=== PATIENT | female | born 1935 | race Caucasian/White ===

== ENCOUNTER 2017-02-03 09:15 | Emergency (ER) | payer MEDICARE, OTHER ==
--- NOTE | ~2017-02-03 | EKG ---
PATIENT: JAREN ANGEL UNIT #: [id number] Ventricular Rate: 68 BPM Atrial Rate: 68 BPM P-R Interval: 212 ms QRS Duration: 84 ms Q-T Interval: 428 ms QTC Calculation(Bezet): 455 ms P Lilly: 58 degrees Calculated R Lilly: 14 degrees Calculated T Lilly: 30 degrees Diagnosis Line: Atrial-paced rhythm with prolonged AV conduction Diagnosis Line: in a pattern of bigeminy Diagnosis Line: Abnormal ECG Diagnosis Line: When compared with ECG of 29-APR-2016 09:40, Diagnosis Line: Electronic atrial pacemaker has replaced Atrial Diagnosis Line: fibrillation Diagnosis Line: Nonspecific T wave abnormality no longer evident Diagnosis Line: in Anterior leads Diagnosis Line: Confirmed by NAVNEET ROUSSEAU MD ([id number]) on Diagnosis Line: 02/03/2017 3:27:30 PM INTERPRETING MD: SOHAM JEFFERS
--- NOTE | ~2017-02-03 | CT16 ---
[facility] A Service of [facility] & [facility] RADIOLOGY TEXT RESULTS PATIENT: JAREN ANGEL LOCATION: [facility] : 33 UNIT #: [id number] AGE: [address]: Vanessa Musa MD SEX: F ORDER DR: [id number] [facility] [address] [place], [place] [address] [id number] E MR#: [id number] Acc #: [id number] NAME: JAREN ANGEL : 1935 SEX: F STUDY DATE/TIME: 02/03/2017 10:43 UNIT: [facility] ROOM: STUDY DESCRIPTION: CT Angio Chest for PE Attending Physician: Vanessa Musa M.D. Ordering Physician: Andria Valdovinos M.D. Primary Care Physician: Kumar Pugh Jr., M.D. MEDICAL IMAGING REPORT This report is preliminary unless electronic signature is present EXAM CT angiogram of the chest for pulmonary embolism 02/03/2017 1043 hours CLINICAL HISTORY 81-year-old woman complaining of thoracic posterior pain, posterior back pain with shortness of air for 2 days worsening this morning. History of previous thoracic compression fracture. Evaluate for pulmonary embolism. TECHNIQUE Dynamic helical CT angiographic images were obtained from the thoracic inlet through the adrenal glands. 3D sagittal and coronal reconstructions were performed. Contrast was Isovue-370 70 mL. Total exam DLP 5779 mGy-cm. This CT exam was performed with one or more of the following radiation dose reduction techniques: automatic exposure control, adjustment of mA and/or kV according to patient size, and iterative reconstruction. FINDINGS Images through the thoracic inlet demonstrate no thyroid mass or supraclavicular adenopathy. Images through the chest demonstrate diagnostic quality opacification of the pulmonary arteries which are mildly prominent in size. There are no filling defects to suggest the presence of pulmonary emboli. There is diffuse atherosclerotic change of the thoracic aorta which is well-opacified. Ascending aorta is within normal limits at 3.3 cm. There is prominence of the right ventricle without pericardial fluid. The esophagus is normal. Lung window images demonstrate band-like scarring at the right greater than left apex. There is some peripheral linear density in the lingula and both lower lobes. The lingula and lower lobe linear changes are stable. There is a nodular density abutting the posterior dome of the STS. [facility] A Service of [facility] & [facility] RADIOLOGY TEXT RESULTS PATIENT: JAREN ANGEL LOCATION: [facility] : 33 UNIT #: [id number] AGE: [address]: Vanessa Musa MD SEX: F ORDER DR: right hemidiaphragm measuring up to 1.9 cm new from 09/22/2014. The sagittal and coronal images raise question of a focal herniation or eventration of the hemidiaphragm with the nodule appearing fairly isodense to liver with subtle suggestion of a similar but smaller density on the sagittal and coronal reconstructed images of 09/22/2014. There is no definite pneumonia or edema. Limited views through the upper abdomen demonstrate a distended gallbladder without definite stones. The adrenal glands are normal. IMPRESSION 1. No evidence of pulmonary embolism. 2. There is linear scarring at the right greater than left lung apex and dependent linear density at the lung bases similar to CT abdomen 09/22/2014 likely chronic atelectasis or scar. 3. There is a new or increasing soft tissue nodular density abutting the posterior dome of the right hemidiaphragm measuring up to 1.9 cm. The sagittal and coronal reconstructed images suggest that this could represent a focal eventration of the hemidiaphragm with nodule representing liver or focal herniation. This may be vaguely apparent on the sagittal and coronal reconstructed images from CT abdomen 09/22/2014 but it is clearly increased. Consider further evaluation with multiphase CT abdomen to determine whether this is isodense and enhances similar to the liver. If this does not represent liver then a PET/CT would be warranted to exclude a new right pleural-based nodule. STAT * RESULT Dictated by... Debbie Avery M.D. THIS IS AN ELECTRONICALLY VERIFIED REPORT Debbie Avery M.D. at 02/03/2017 1:34 PM CORTNEY/marin TD: 02/03/2017 11:32 JOB #: [id number] MEDICAL IMAGING REPORT COPY
--- NOTE | ~2017-02-03 | CR72 ---
[facility] A Service of [facility] & [facility] RADIOLOGY TEXT RESULTS PATIENT: JAREN ANGEL LOCATION: [facility] : 33 UNIT #: [id number] AGE: [address]: Vanessa Musa MD SEX: F ORDER DR: [id number] [facility] [address] [place], [place] [address] [id number] E MR#: [id number] Acc #: [id number] NAME: JAREN ANGEL. : 1935 SEX: F STUDY DATE/TIME: 02/03/2017 8:27 UNIT: [facility] ROOM: STUDY DESCRIPTION: CR Chest Single View Portable Attending Physician: Andria Valdovinos M.D. Ordering Physician: Andria Valdovinos M.D. Primary Care Physician: Kumar Pugh Jr., M.D. MEDICAL IMAGING REPORT This report is preliminary unless electronic signature is present EXAM Portable chest, 02/02/2017. COMPARISON STUDIES Prior chest radiograph, 03/08/2014. CLINICAL HISTORY Short of air for 2-3 weeks. FINDINGS There is mild pulmonary hyperexpansion and borderline cardiomegaly. There is a pacemaker present but no infiltrate, effusion, pneumothorax, or suspicious nodule. IMPRESSION Chronic changes above. No active disease. Dictated by... Bereket Gutierrez M.D. THIS IS AN ELECTRONICALLY VERIFIED REPORT Bereket Gutierrez M.D. at 02/03/2017 5:02 PM TEV/padmini TD: 02/03/2017 09:54 JOB #: [id number] MEDICAL IMAGING REPORT COPY
[2017-02-03 08:43] LABS: POC - CKMB <1.0 ng/mL (0.0-7.9); POC - TROPONIN <0.05 ng/mL (<=0.05)
[2017-02-03 09:00] LABS: BASOPHIL# 0.1 X10e3 (0-0.3); EOSINOPHIL# 0.1 X10e3 (0-0.7); EOSINOPHIL% 2.6 % (0.0-7.0); HEMATOCRIT 31.1 % (35.0-45.0); HEMOGLOBIN 9.8 gm/dL (12.0-16.0); LYMPHOCYTE% 18.6 % (17.0-45.0); MEAN CELL VOLUME 73.3 FL (83-96); MEAN CORPUSCULAR HEMOGLOBIN 23.2 PG (28-34); MEAN CORPUSCULAR HGB CONC 31.7 g/dL (30-36); MEAN PLATELET VOLUME 7.5 FL (6.5-11.5); MONOCYTE# 0.4 X10e3 (0-1.0); MONOCYTE% 7.8 % (3.0-12.0); NEUTROPHIL# 3.8 X10e3 (1.5-7.1); PLATELET COUNT 278 X10e3 (140-420); RED BLOOD COUNT 4.24 X10e (3.90-5.30); RED CELL DISTRIBUTION WIDTH 18.3 % (11.0-15.5); WHITE BLOOD COUNT 5.4 X10e3 (4.0-10.5)
[2017-02-03 09:02] LABS: DIFF IND NO
[2017-02-03 09:06] LABS: INR 2.6; PARTIAL THROMBOPLASTIN TIME 35.5 SECONDS (23.5-31.3); PROTHROMBIN TIME (PATIENT) 28.3 SECONDS (9.6-11.5)
[2017-02-03 09:11] LABS: ALBUMIN SERUM 3.9 g/dL (3.5-5.0); ALKALINE PHOSPHATASE 87 U/L (32-92); ALT (SGPT) 12 U/L (10-40); AST (SGOT) 20 U/L (10-42); BILIRUBIN, DIRECT 0.1 mg/dL (0.0-0.2); BILIRUBIN,INDIRECT 0.5 mg/dL (0.0-0.9); BILIRUBIN,TOTAL 0.6 mg/dL (0.2-2.0); BLOOD UREA NITROGEN 31 mg/dL (9-23); BUN/CREATININE RATIO 44.28; CALCIUM SERUM 9.2 mg/dL (8.4-10.2); CARBON DIOXIDE 22 mmol/L (22-31); CHLORIDE 108 mmol/L (100-111); CREATININE SERUM 0.7 mg/dL (0.6-1.4); GLOM FILT RATE Estimated ABOVE60 mL/min (>60); GLUCOSE FASTING 139 mg/dL (70-110); POTASSIUM 3.5 mmol/L (3.5-5.1); PROTEIN TOTAL SERUM 6.9 g/dL (6.0-8.3); SODIUM 140 mmol/L (135-145)
[~2017-02-03 09:15] MED LIST: ACETAMINOPHEN PR; AMLODIPINE-BENA1 CA3 PO; AMLODIPINE-BENA1 CAP PO; AMOXICILLIN500 M1 PO; AZOR 5-20 MG T1 EACH PO; BETAPACE PO; BETAPACE80 MG PO; CALCIUM + D 6001 TA1 PO; CALCIUM 500 +1 EAC2 PO; CARAFATE1 GM PO; CARTIA XT240 M1 PO; CELEXA10 M1 PO; CENTRUM SILVER PO; CITALOPRAM HBR10 MG PO; CLARITHROMYCIN500 MG PO; COUMADIN PO; COUMADIN5 MG PO; CRESTOR PO; DOCUSATE SODIU100 MG PO; EXELON1 PATCH .2 TD; EXELON4.6 MG TD; GLUCOSAMINE & C1 CAP PO; HYDROCODON-ACE1 EAC5 PO; HYDROCODON-ACE1 EAC7 PO; HYDROCODONE-APA1 T57 PO; K-DUR10 MEQ PO; KLOR-CON SPRIN10 MEQ PO; LOTREL 10/20 MG1 CAP PO; LOTREL 5-20 MG1 CAP PO; METOPROLOL TAR25 MG PO; MIRALAX17 GM PO; OMEPRAZOLE20 M2 PO; OSCAL PO; POTASSIUM CHLO10 ME1 PO; PREVAGEN PO; PRILOSEC40 MG; PROTONIX PO; ROBAXIN500 MG PO; SOTALOL AF80 M1 PO; SOTALOL AF80 MG PO; STOOL SOFT & ST1 TAB PO; TESSALON200 MG PO; TYLENOL PM PO; ZITHROMAX1 G/PKT PO; ZOCOR PO
[2017-02-03 10:53] LABS: POC - CKMB <1.0 ng/mL (0.0-7.9); POC - TROPONIN <0.05 ng/mL (<=0.05)
== END 2017-02-03 12:33 | disposition home or self-care (01) ==
LOC: CED 09:15
PROVIDERS: Emergency Medicine
DX: M54.6 Pain in thoracic spine (principal); G89.29 Other chronic pain; R06.02 Shortness of breath; E78.5 Hyperlipidemia, unspecified; I48.91 Unspecified atrial fibrillation; I10 Essential (primary) hypertension; F32.9 Major depressive disorder, single episode, unspecified; F03.90 Unspecified dementia, unspecified severity, without behavioral disturbance, psychotic disturbance, mood disturbance, and anxiety; Z95.0 Presence of cardiac pacemaker
CPT/HCPCS: 36415; 71010; 71275; 80048; 80076; 82553; 83880; 84484; 85025; 85379; 85610; 85730; 93005; 99284; Q9967

== ENCOUNTER 2017-02-09 20:48 | Emergency (ER) | payer MEDICARE, OTHER ==
--- NOTE | ~2017-02-09 | EKG ---
PATIENT: JAREN ANGEL UNIT #: [id number] Ventricular Rate: 70 BPM Atrial Rate: 70 BPM P-R Interval: 204 ms QRS Duration: 76 ms Q-T Interval: 420 ms QTC Calculation(Bezet): 453 ms P [place]: 71 degrees Calculated R [place]: 27 degrees Calculated T [place]: 23 degrees Diagnosis Line: Atrial-paced rhythm with frequent supraventricular Diagnosis Line: complexes and Premature atrial complexes in a Diagnosis Line: pattern of bigeminy Diagnosis Line: Abnormal ECG Diagnosis Line: When compared with ECG of 03-FEB-2017 08:01, Diagnosis Line: Premature atrial complexes are now Present Diagnosis Line: Confirmed by NAVNEET ROUSSEAU MD ([id number]) on Diagnosis Line: 02/10/2017 8:02:56 AM INTERPRETING MD: SOHAM JEFFERS
== END 2017-02-09 21:15 | disposition home or self-care (01) ==
LOC: CED 20:48
DX: M54.6 Pain in thoracic spine (principal); G89.29 Other chronic pain; F41.9 Anxiety disorder, unspecified; I10 Essential (primary) hypertension; Z98.890 Other specified postprocedural states
CPT/HCPCS: 93005; 96372; 99283; J2270

== ENCOUNTER 2017-02-15 16:39 | Inpatient (IN) | payer MEDICARE, OTHER ==
--- NOTE | ~2017-02-15 | DS ---
Unit #: [id number] #: [id number] Patient: JAREN ANGEL [id number] [address] [place], [place] [address] [id number] I MR#: [id number] NAME: JAREN ANGEL ROOM: 229 Age: 81 Sex: F Admission Date: 02/15/2017 : 1935 Discharge Date: Attending Physician: Dash Evans M.D. Primary Care Physician: Kumar Pugh Jr., M.D. DISCHARGE SUMMARY ADDENDUM Previously, since the time of dictation, the patient has been started on hemodialysis by Nephrology on Friday, Friday, Friday. The patient was accepted at [facility] in the past and the patient has been accepted at [facility] today also. The patient has been improved much since the last time when the patient was about to be discharged. The patient was waiting for the outpatient hemodialysis placement. However, the only spot available was at 6 a.m. in the morning and that was not acceptable to the family at that time. So, the patient has been discharged to the rehab today in stable condition. DISCHARGE DIAGNOSES 1. Acute renal failure that is on hemodialysis. 2. Escherichia coli urinary tract treated and resolved. 3. Toxic metabolic encephalopathy, improved. 4. Paroxysmal atrial fibrillation and rate controlled on anticoagulation with Eliquis. 5. History of sick sinus syndrome status post pacemaker. 6. Essential hypertension. 7. Dyslipidemia. 8. Advanced dementia. CONSULTANTS Nephrology with Dr. Stack and Dr. Castro. PROCEDURE Dialysis per Nephrology. PHYSICAL EXAMINATION GENERAL APPEARANCE: The patient is lying on bed not in acute distress. VITAL SIGNS: Temperature 97.4. Pulse 60. Respiration 11. Blood pressure 144/65. Sating 96% (1) . HEENT: Head atraumatic, normocephalic. ENT: Pupils equal, round, reacting to light and accommodation. Extraocular movements are intact. NECK: Supple. No JVD. LUNGS: Clear to auscultation bilaterally. No rhonchi. No wheezing. HEART: Irregular rate and rhythm. Positive for murmur. ABDOMEN: Soft. Positive bowel sounds. EXTREMITIES: No cyanosis. No clubbing. NEUROLOGIC: Alert, awake, oriented. No gross focal motor deficit. DIAGNOSTIC STUDIES LABORATORY: Glucose 92, BUN 18, creatinine 2, sodium 143, potassium 3.6, Unit #: [id number] #: [id number] Patient: JAREN ANGEL chloride 103, bicarb 27, calcium 8.4. INR 1.5. WBC 4.1, hemoglobin 9.2, hematocrit 29.3, platelets 207. In terms of microbiology, the patient's blood cultures remain negative. The patient's urine culture positive for the E. coli sensitive to Rocephin in which she received for seven days of antibiotics and the UTI has resolved. DISCHARGE MEDICATION 1. Cardizem 240 mg daily. 2. Sotalol 80 mg twice daily. 3. Colace 100 mg twice daily. 4. MiraLax. 5. Mannitol. 6. Robitussin. 7. Procrit once a week. 8. Lipitor 80 mg at bedtime. 9. Tylenol. 10. Coumadin 5 mg alternating with 7.5 mg. 11. Zofran. 12. Seroquel 50 mg at bedtime. 13. Ativan 0.5 mg for agitation. 14. Hydralazine 25 mg three times a day. 15. Exelon 4.6 mg patch. 16. Protonix 40 mg tablet daily. 17. Phos-NaK packet. Patient discharged to the rehab in stable condition with dialysis on Friday, Friday, Friday, follow with Nephrology. Dictated by... Thanh Suárez TD: 03/04/2017 11:27 JOB #: [id number] DISCHARGE SUMMARY Page 1 of 1 X X DISCHARGE SUMMARY
--- NOTE | ~2017-02-15 | CT4 ---
[facility] A Service of [facility] & [facility] RADIOLOGY TEXT RESULTS PATIENT: JAREN ANGEL LOCATION: [facility] 309- : 33 UNIT #: [id number] AGE: [address]: Ricky Bonilla MD SEX: F ORDER DR: [id number] [facility] [address] [place], [place] [address] [id number] I MR#: [id number] Acc #: [id number] NAME: JAREN ANGEL. : 1935 SEX: F STUDY DATE/TIME: 02/17/2017 19:46 UNIT: A U ROOM: [facility] STUDY DESCRIPTION: CT Abd and Pelv Wo Cont Attending Physician: Ricky Bonilla M.D. Ordering Physician: Ricky Bonilla M.D. Primary Care Physician: Kumar Pugh Jr., M.D. MEDICAL IMAGING REPORT This report is preliminary unless electronic signature is present EXAM Abdomen and pelvis CT no contrast, 02/17/2017 INDICATION Right-sided abdominal and back pain for 2 days. Altered mental status and confusion since February 10, hypertension, COPD. TECHNIQUE Noncontrast abdomen and pelvis CT was performed. This CT exam was performed with one or more of the following radiation dose reduction techniques: automatic exposure control, adjustment of mA and/or kV according to patient size, and iterative reconstruction. COMPARISON 09/22/[address] ABDOMEN: Exam degraded by noncontrast technique. There is a trace amount of pleural fluid or pleural thickening in the lung bases left greater than right. Probable bibasilar atelectasis. The lungs are emphysematous. There is a new parenchymal nodular density in the right lower lobe measuring 15.0 mm. This is indeterminate. Both benign and malignant etiologies are differential considerations. There is a mild pectus excavatum deformity. The heart is enlarged. Aorta demonstrates advanced atherosclerotic change. No aneurysm. Augmentation mammoplasty changes bilaterally. Spleen demonstrates granulomatous calcifications. Adrenal glands unremarkable. Pancreas atrophic. Gallbladder distended. Liver demonstrates focal fatty change adjacent to the falciform ligament. Kidneys demonstrate no radiopaque stone or hydronephrosis. Visualized ureters unremarkable. STS. [facility] A Service of [facility] & [facility] RADIOLOGY TEXT RESULTS PATIENT: JAREN ANGEL LOCATION: A 309-01 : 33 UNIT #: [id number] AGE: [address]: Ricky Bonilla MD SEX: F ORDER DR: CT Pelvis: The bladder decompressed by a Ramírez catheter and contains a small amount of air. There is no adnexal mass. Tiny follicle in the right ovary. There is no drainable fluid collection in the pelvis. There is extensive diverticulosis. Bowel demonstrates no obstruction or focal inflammatory change. Appendix not clearly identified but no secondary sign of appendicitis or inflammatory change of the right lower quadrant. Inguinal canals are unremarkable. Postop changes of posterior lumbar fusion with associated streak artifact. There are compression fracture deformities of L1 and T12 that are unchanged. New compression fracture deformity of L5 with interval kyphoplasty change. IMPRESSION 1. No clearly acute process in the abdomen or pelvis. No bowel obstruction, drainable fluid collection or focal area of inflammatory change. 2. The patient does have a new indeterminate lung nodule in the right lower lobe measuring up to 15.0 mm. Both benign and malignant etiologies are in the differential. Consider further evaluation with PET/CT. It is intimately associated with the diaphragm. Incidental pleural thickening or trace effusions left greater than right in the lung bases and underlying emphysema and atelectasis/scarring in the lung bases. 3. Diverticulosis. 4. Appendix not clearly demonstrated but no secondary sign of appendicitis. 5. Advanced atherosclerotic change of the aorta. 6. Postop changes in the lumbar spine. Incidental pectus deformity noted. Dictated by... Sundeep Zendejas M.D. THIS IS AN ELECTRONICALLY VERIFIED REPORT Sundeep Zendejas M.D. at 02/18/2017 10:02 PM [place] TD: 02/18/2017 09:09 JOB #: [id number] MEDICAL IMAGING REPORT Page 1 of 1 COPY
--- NOTE | ~2017-02-15 | CT71 ---
[facility] A Service [facility] RADIOLOGY TEXT RESULTS PATIENT: JAREN ANGEL LOCATION: [facility] : 33 UNIT #: [id number] AGE: [address]: Ricky Bonilla MD SEX: F ORDER DR: [id number] [facility] [address] [place], [place] [address] [id number] I MR#: [id number] Acc #: [id number] NAME: JAREN ANGEL. : 1935 SEX: F STUDY DATE/TIME: 02/15/2017 17:58 UNIT: C3A PCU ROOM: [facility] STUDY DESCRIPTION: CT Head Wo Contrast Attending Physician: Ricky Bonilla M.D. Ordering Physician: Simon Olmos M.D. Primary Care Physician: Kumar Pugh Jr., M.D. MEDICAL IMAGING REPORT This report is preliminary unless electronic signature is present EXAM Noncontrast head CT. HISTORY Confusion, weakness, hypotension today. COMPARISON 12/14/[address] exam was performed with one or more of the following radiation dose reduction techniques: automatic exposure control, adjustment of mA and/or kV according to patient size, and iterative reconstruction. FINDINGS Axial noncontrast imaging of the brain demonstrates no evidence of mass, mass effect, or midline shift. No hemorrhage. No abnormal extraaxial fluid collections. Mild decreased attenuation of periventricular white matter may reflect chronic microvascular disease. Skull base and mastoids unremarkable. IMPRESSION 1. No acute intracranial abnormality. 2. Mild generalized atrophy with suspected chronic microvascular change. Dictated by... Sumi Cruz M.D. THIS IS AN ELECTRONICALLY VERIFIED REPORT Sumi Cruz M.D. at 02/16/2017 10:52 PM JMS/martw [facility] A Service [facility] RADIOLOGY TEXT RESULTS PATIENT: JAREN ANGEL LOCATION: [facility] : 33 UNIT #: [id number] AGE: [address]: Ricky Bonilla MD SEX: F ORDER DR: TD: 02/16/2017 10:13 JOB #: [id number] MEDICAL IMAGING REPORT Page 1 of 1 COPY
--- NOTE | ~2017-02-15 | TOC ---
Unit #: [id number] #: [id number] Patient: JAREN ANGEL [id number] [address] [place], [place] [address] [id number] I MR#: [id number] NAME: JRAEN ANGEL ROOM: 309 Age: 81 Sex: F Admission Date: 02/15/2017 : 1935 Attending Physician: Ricky Bonilla M.D. Primary Care Physician: Kumar Pugh Jr., M.D. TRANSFER OF CARE SUMMARY WORKING DIAGNOSES Include: 1. Acute renal failure. Patient did receive IV contrast on 02/05/2017 in the ER. Following that she did have reduced oral intake per her . The patient had received hemodialysis once with nephrology and has plan for second dialysis today. 2. Escherichia coli urinary tract infection, sensitive to Rocephin and patient has been on this since 02/15/2017. 3. Toxic metabolic encephalopathy secondary to acute renal failure as well as urinary tract infection. 4. Coagulopathy that was present on admission. The patient was given vitamin K and she has been restarted on her home dose of Coumadin. 5. History of nonsustained ventricular tachycardia. 6. History of paroxysmal atrial fibrillation, rate controlled on Eliquis. 7. History of sick sinus syndrome, has pacemaker. 8. Essential hypertension. 9. Dyslipidemia. 10. Advanced dementia. 11. Chronic back pain with multiple back surgeries. 12. History of compression fracture. 13. DNR/DNI status per patient's stated wish. CONSULTANTS Nephrology with Dr. Stack and Dr. Castro, I believe. PROCEDURES Dialysis per Nephrology. DIAGNOSTIC IMAGING STUDIES 1. Chest x-ray on 02/15/2017 with findings of possible interstitial fibrosis or edema. Mild cardiomegaly. Diffuse aortic atherosclerotic changes. No pneumothorax. No definite acute processes. 2. Head CT on 02/15/2017. Impression: No acute intracranial abnormality. Mild generalized atrophy with suspected chronic microvascular change. 3. Ultrasound of her kidneys on 02/17/2017. Impression: Bilateral increase in renal cortical echogenic characteristic of medical renal disease. No evidence of hydronephrosis. The bladder is empty for the exam and therefore poorly visualized. 4. CT abdomen and pelvis on 02/17/2017. Impression: 1) No clearly acute process in the abdomen or pelvis. No bowel obstruction, drainable fluid collection, or focal area of inflammatory change. 2) The patient does have a new indeterminate lung nodule in the right lower lobe measuring up to 15.0 mm. Both benign and malignant Unit #: [id number] #: [id number] Patient: JAREN ANGEL etiologies are in the differential. 3) Diverticulosis. 4) Appendix not well clearly visualized but no findings of appendicitis. 5) Advanced atherosclerotic change of the aorta. 6) Postop change in the lumbar spine. LABORATORY Include: BMP with glucose 135, BUN 43, creatinine 6.5, sodium 138, potassium 3.8, chloride 104, CO2 is 17, anion gap 7, calcium 7.5, phosphorus 3.6, magnesium is 1.8, total protein 5.4, albumin 2.8, total bilirubin 0.6, AST 41, ALT 44, alkaline phosphatase 82. CBC with WBC of 6.8, RBC 3.76, hemoglobin 9.3, hematocrit 29.0, MCV 77.2, MCH 24.7, MCHC 32.0, RDW 25.3, platelets 227, MPV 27.8. HOSPITAL COURSE Patient is a pleasant 81-year-old female with past medical history of dementia, paroxysmal atrial fibrillation, sick sinus syndrome with pacemaker, essential hypertension, dyslipidemia, chronic back pain with multiple surgeries, history of compression fracture of the spine. Patient was brought to the emergency room due to change in mental status, confusion. She was noted to be hypotensive in the emergency department and questionable ventricular tachycardia per EMS. In the emergency department, she was found to have an INR of 13, BUN 54, creatinine 7.1. Dr. Stack was notified on admission. Patient was given vitamin K 10 mg IM once. The patient was found to have a UTI and was treated with Rocephin. Per the patient's , she has had generalized weakness for about a week and has been having increased back pain as well as had multiple epidural for compound fracture of the 8th vertebra. The patient was seen in our emergency department on 02/03/2017, had a CTA of her chest done and she was again seen at [facility] on Friday and was given some muscle relaxer and she has declined since her ER visit to [place]. He stated he had not been able to follow up with patient's primary care physicians in between those admissions as he has not been able to get an appointment to see their primary care physician. Of note, the patient's creatinine in our emergency department back in 02/03/2017 was 0.7. Patient was admitted for UTI as well as encephalopathy secondary to acute renal failure. She was seen in consultation with Nephrology and up to now she has had two dialysis sessions. She has been receiving Rocephin for her E coli UTI. It is sensitive to Rocephin and she has been on that treatment since 02/15/2017. At this time, patient is still much confused. She is agitated. She has required restraints for the past four days. We are utilizing Haldol as needed. The patient has not been able to tolerate much oral intake as she is too confused. I did discuss with patient's what his ultimate goal for his would be and he states that he would not want any heroic measures to be taken. Therefore, the patient is made a DNR/DNI. He states that he would never want a PEG tube placement if patient is not able to take any oral intake. He states that he is hopeful that patient will eventually be back to her baseline or at least be functional enough for her to be discharged to rehab and eventually go home with him. I have spoken to the patient's about her guarded prognosis but we will continue with aggressive treatment as this is his wish at this time. He voiced understanding. Unit #: [id number] #: [id number] Patient: JAREN ANGEL Dictated by... Tate Mata PA-C for Thanh Stacy/dean TD: 02/21/2017 18:05 JOB #: [id number] TRANSFER OF CARE SUMMARY Page 1 of 1 X X TRANSFER OF CARE SUMMARY
--- NOTE | ~2017-02-15 | FU ---
[facility] Nutrition Therapy DATE: 03/03/17 Patient: JAREN Tyrone ANGEL Physician: SONALI Address: [address] [place] [address] DRIVE Room/Bed: [address], Zip: [place] [address] Admit Date: 02/15/17 Date of : 33 Height: 5 5 Weight: 130 59.4 NUTRITION MONITORING/FOLLOW-UP: Reason: PT SEEN FOR FOLLOW-UP DX: UTI/TEENA/CONFUSION/HYPOTENSION Anthropometrics: 5'5", WT: 130# (59 KG), BMI: 21.6 -ADMIT WEIGHT: 141# Labs: BUN: 30, CREAT: 2.8, CA+:8.2, PHOS: 1.8, GFR: 15.0 Meds: COUMADIN, ZOFRAN, MIRALAX, PROTONIX, COLACE, LIPITOR, PHOS-NAK, MANNITOL I&O's: 190/6, 2 BMs NOTED Skin: ISSUES PREVIOUSLY NOTED Estimated Nutrition Needs: Assessment: CHART REVIEWED AND EVENTS NOTED. PT SEEN FOR FOLLOW-UP. PT SLEEPY/LETHARGIC AT TIME OF VISIT RECEIVING HD AT TIME OF VISIT. REPORTS PT ONLY TAKING BITES OF FOODS, NOTING POOR APPETITE. FAMILY ADDS THAT PT LIKES DRINKING 1-[address] ENCOURAGED ADEQUATE KCAL AND PROTEIN INTAKE, FAMILY AGREED. REPORTED NO DIET QUESTIONS AT THIS TIME. PER CHART, AWAITING HD PLACEMENT POST-DISCHARGE. RD TO FOLLOW. Dx: INADEQUATE PROTEIN-ENERGY INTAKE R/T DECREASED APPETITE AEB POOR INTAKE SINCE ADMISSION, LIKELY WEIGHT LOSS OF UNKNOWN AMOUNT.-ACTIVE Intervention: 1. REGULAR DIET 2. ENSURE SHAKES (STRAW BID) 3. BUTTERSCOTCH ENSURE PUDDING ONCE DAILY Monitoring, Evaluation and Goals: GOALS NOT MET 1. ORAL INTAKE; CONSUME >50% OF MEALS AND SUPPLEMENT INTAKE W/NO C/O N/V/D 2. LABS: WNL 3. WEIGHTS; PREVENT WEIGHT LOSS MONITOR: -PO INTAKE/APPETITE -WEIGHTS -SUPPLEMENT INTAKE Recommendations: [facility] Nutrition Therapy DATE: 03/03/17 Patient: JAREN ANGEL Physician: SONALI Address: [address] [place] [address] DRIVE Room/Bed: [address] [place] [address], Zip: [place] [address] Admit Date: 02/15/17 Date of : 33 Height: 5 5 Weight: 130 59.4 1. CONTINUE TO ENCOURAGE ADEQUATE KCAL AND PROTEIN INTAKE. ASSIST W/PO INTAKE AND ORDERING MEALS NEEDED 2. CONSIDER ADDING AN APPETITE STIMULANT, SUCH MEGACE, PT HAS HAD POOR PO INTAKE SINCE ADMISSION 3. IF PT'S INTAKE DOES NOT IMPROVE, MAY CONSIDER OBTAINING ENTERAL ACCESS AND INTIATING ENTERAL NUTRITION APPROPRIATE. CONSULT RD RD WILL F/U PER PROTOCOL PT IS MODERATELY COMPROMISED Respectfully, JUDE HERNANDEZ MS, RD, LD Food and Nutritional Services [facility] cc: client file
--- NOTE | ~2017-02-15 | DS ---
Unit #: [id number] #: [id number] Patient: JAREN ANGEL [id number] [place], [place] [address] [id number] I MR#: [id number] NAME: JAREN ANGEL ROOM: 229 Age: 81 Sex: F Admission Date: 02/15/2017 : 1935 Discharge Date: 02/28/2017 Attending Physician: Ricky Bonilla M.D. Primary Care Physician: Kumar Pugh Jr., M.D. DISCHARGE SUMMARY ADDENDUM ADDENDUM This is an addendum to the job summary that was started on 02/21/17. Since the time of that dictation patient has had hemodialysis by Nephrology and patient has been set up with dialysis at [facility] on Friday, Friday, Friday on [facility] at 6:00 p.m. Patient has also been accepted to [facility] for continuing rehab. Since the time of that dictation patient has not improved much in her terms of mental status although sometimes she does still wax and wane. Some days she is more active and participates with the physical therapy. Other days she still is quite sleepy. At this time all sedating medicines have been discontinued. I have stressed to the patient's about treating her chronic back pain with Tylenol only instead of the previous [place] as patient sometimes is quite sleepy and does not want to continue any further activities with physical therapy. The patient's voiced understanding but is still concerned about patient's chronic back pain. Patient currently is stable. Her labs this morning are BMP: Glucose of 109, BUN 15, creatinine 2.2, sodium 141, potassium 3.3, chloride 108, CO2 22, calcium 7.6, phosphorus 6.4, magnesium 1.6, total protein is 5.4, albumin 2.8, total bilirubin 0.6, AST of 41, ALT of 44, alkaline phosphatase of 82. CBC with WBC of 3.5, RBC of 3.33, hemoglobin is 8.3, hematocrit is 26.2, MCV is 78.7, MCH is 25.0, MCHC is 31.8, RDW is 25.2, platelet is 181, MPV is 8.1. In terms of microbiology the patient's blood culture had no growth. The patient's UTI with E. coli sensitive to Rocephin which she had received a total of seven days of IV antibiotics. DISCHARGE MEDICATION Discharge medicines at this time include: 1. Warfarin 5 mg p.o. daily. 2. Seroquel 50 mg p.o. q.h.s. 3. Diltiazem 240 mg p.o. daily. 4. Betapace 80 mg p.o. b.i.d. 5. Colace 100 mg p.o. b.i.d. 6. MiraLAX 17 g p.o. daily. 7. Crestor 20 mg p.o. q.h.s. 8. Hydralazine 25 mg p.o. t.i.d. 9. Carafate 1 g p.o. b.i.d. 10. Exelon 4.6 mg extended release daily as a patch. 11. Omeprazole 20 mg p.o. daily. 12. Calcium plus D one tablet p.o. daily. Any additional medication should be added on after seen by Nephrology. Unit #: [id number] #: [id number] Patient: JAREN ANGEL DISPOSITION Patient is stable and does have a place at rehab and does have dialysis set up but at this time patent has not received her dialysis yet and Nephrology has not seen her so she will be discharged pending the approval of Nephrology. Dictated by... Tate Mata PA-C for Thanh Stacy/leanna TD: 02/28/2017 22:17 JOB #: [id number] DISCHARGE SUMMARY Page 1 of 1 X X DISCHARGE SUMMARY
--- NOTE | ~2017-02-15 | XA93 ---
[facility] A Service of [facility] & [facility] RADIOLOGY TEXT RESULTS PATIENT: JAREN ANGEL LOCATION: C2A - : 33 UNIT #: [id number] AGE: [address]: KENDRA EVANS MD SEX: F ORDER DR: [id number] [facility] [address]. [place], [place] [address] [id number] I MR#: [id number] Acc #: [id number] NAME: JAREN ANGEL. : 1935 SEX: F STUDY DATE/TIME: 02/25/2017 8:43 UNIT: C2A ROOM: 229 STUDY DESCRIPTION: XA CVC Tunneled WO Pump/Port Attending Physician: Kendra Evans M.D. Ordering Physician: Ricky Bonilla M.D. Primary Care Physician: Kumar Pugh Jr., M.D. MEDICAL IMAGING REPORT This report is preliminary unless electronic signature is present REVISED REPORT SEE ADDENDUM EXAM Tunneled catheter placement INDICATION Renal failure with need for long-term dialysis access. Patient had a GFR of 4.1 February 17, 2017 and underwent Shiley catheter placement. FINDINGS The procedure was explained to the patient including risks, benefits, potential complications and potential for alternative forms of treatment. Informed consent was obtained and prior to initiating the procedure a formal time-out procedure was performed. Using all elements of maximal sterile barrier technique including hand hygiene, caps, sterile gowns, gloves and masks the right neck was prepped with 2% Chlorhexidine for cutaneous antisepsis and covered with a large sterile sheet. Real-time ultrasound guidance was used to localize the right internal jugular vein which was found to be patent and compressible. A hard copy ultrasound image was obtained. After local anesthesia with 1% Xylocaine the vein was punctured using real-time sterile ultrasound guidance an 0.018 guidewire was advanced into the superior vena cava under fluoroscopic guidance. A micropuncture sheath was placed and an Amplatz wire was advanced into the right atrium. The skin and subcutaneous tissues of the right anterolateral chest wall were anesthetized with buffered lidocaine and lidocaine with epinephrine. A small skin incision was made. The catheter was tunneled up through the right anterolateral chest wall to the insertion site of the neck. The tract was serially dilated. A peel-away sheath was advanced over the wire, and the catheter was advanced through the peel-away sheath and was positioned within the right atrium. Following placement of the catheter it flushed and STS. [facility] A Service of [facility] RADIOLOGY TEXT RESULTS PATIENT: JAREN ANGEL LOCATION: [facility] 229-01 : 33 UNIT #: [id number] AGE: [address]: KENDRA EVANS MD SEX: F ORDER DR: shala islas. The distal end was secured using two 2-0 Prolene sutures and the insertion site at the neck was closed using a single 4-0 Monocryl suture. Dermabond was applied to wound to act as a dressing. Position of the catheter was confirmed with a radiographic image. Total fluoroscopy time 0.6 minutes. AK was 3 mGy. The patient did receive conscious sedation consisting of 1.5 mg of Versed and 35 mcg of Fentanyl and continuous monitoring was provided throughout the procedure and a total of 45 minutes of monitoring was provided by the IVR staff. Dictated by... Maci Lea M.D. THIS IS AN ELECTRONICALLY VERIFIED REPORT Maci Lea M.D. at 02/27/2017 6:30 PM STEVE/mer TD: 02/27/2017 12:15 JOB #: [id number] ADDENDUM Successful placement of a right internal jugular vein tunneled dialysis catheter. This catheter is ready for immediate use. Ultrasound and fluoroscopy were used during placement of the catheter and permanent images were saved. Dictated by... Maci Lea M.D. THIS IS AN ELECTRONICALLY VERIFIED REPORT Maci Lea M.D. at 03/06/2017 1:00 PM STEVE/mer TD: 02/27/2017 12:29 JOB #: [id number] CC: Sovera/invision Please Delete MEDICAL IMAGING REPORT Page 1 of 1 COPY
--- NOTE | ~2017-02-15 | FU ---
[facility] Nutrition Therapy DATE: 02/26/17 Patient: JARENRODY ANGEL Physician: SONALI Address: [address] [place] [address] DRIVE Room/Bed: [address] [place] [address], Zip: [place] [address] Admit Date: 02/15/17 Date of : 33 Height: 5 5 Weight: 136 61.8 NUTRITION MONITORING/FOLLOW-UP: Reason: Follow up Anthropometrics: Wt 02/26: 61.8 kg Labs: K+ 3.0 Gluc 114 Creat 2.8 GFR 15 Meds: Coumadin, zofran, miralax, protonix, colace, lipitor I&O's: 620/12, last BM 02/26 Skin: No changes noted Edema: no changes noted Estimated Nutrition Needs: Diet: Regular Assessment: Pt was previously on a pureed diet, and MD ordered for the pt's diet to be liberalized without restriction. RN notes that the pt still has a poor appetite, and consumed 25% of an ice cream this morning. RD explained that the pt has not been consuming adequate nutrition since admission, and stressed the importance of encouraging the pt to eat. RD spoke with the pt at bedside; however, pt remains confused and is unable to report intake. Pt will need outpaitent HD per MD note. Of note, the pt's weight is trending down. Dx: Inadequate protein-energy intake RT decreased appetite AEB poor intake since admission, likely weight loss of unknown amount. Intervention: 1. Regular diet 2. Magic cup TID Monitoring, Evaluation and Goals: 1. Oral intake; tolerate >50% of meals and supplements 2. Labs; WNL 3. Weight; prevent weight loss Recommendations: 1. Continue current diet order with Magic Cup supplements TID. [facility] Nutrition Therapy DATE: 02/26/17 Patient: JAREN ANGEL Physician: SONALI Address: [address] [place] [address] DRIVE Room/Bed: [address] [place] [address], Zip: [place] [address] Admit Date: 02/15/17 Date of : 33 Height: 5 5 Weight: 136 61.8 2. May consider adding an appetite stimulant such as Megace, as the pt has had poor PO intake since admission. 3. If the pt's intake does not improve, may consider obtaining enteral access and initiating enteral nutrition as appropriate. RD will continue to follow. Status: Pt is at moderate nutritional risk. Respectfully, LYNN UGALDE RD, LD Food and Nutritional Services [facility] cc: client file
--- NOTE | ~2017-02-15 | CO ---
Unit #: [id number] #: [id number] Patient: JAREN ANGEL xxx [address] [place], [place] [address] [id number] I MR#: [id number] NAME: JAREN ANGEL. ROOM: 305 Age: Sex: F Admission Date: 02/15/2017 : 1935 Attending Physician: Ricky Bonilla M.D. Primary Care Physician: Kumar Pugh Jr., M.D. Consultation Date: 02/15/2017 CONSULTATION REPORT REASON FOR CONSULT Acute kidney injury. HISTORY OF PRESENT ILLNESS This is an 81-year-old white female with history of dementia and atrial fibrillation, on Coumadin, who was brought to the ED by the secondary to lethargy and decreased p.o. intake. In the ER she was found to be hypotensive, found to have urinalysis consistent with a UTI, acute kidney injury, as well as a supratherapeutic INR. She is being admitted for further workup and evaluation. REVIEW OF SYSTEMS Unable to obtain given the patient's dementia and not quite verbal at this time. PAST MEDICAL HISTORY Past medical history, per records, includes peptic ulcer disease, diverticulosis, atrial fibrillation, dementia, hypertension, depression, dyslipidemia, chronic back pain. PAST SURGICAL HISTORY Back surgery x3, arthroplasty, epidural, hemorrhoidectomy, rotator cuff repair, pacemaker for sick sinus syndrome and breast implants. SOCIAL HISTORY She lives at home with her . She does not smoke. Does not consume alcohol. FAMILY HISTORY Unremarkable. HOME MEDICATIONS Coumadin, Prevagen, Exelon, Crestor, Betapace, Carafate, Colace, oxycodone, Tylenol, omeprazole, GlycoLax, potassium chloride, Neurontin, methocarbamol, Lotrel, calcium carbonate, vitamin D, diltiazem. PHYSICAL EXAMINATION VITAL SIGNS: Blood pressure is 114/68; it had been 87/66 on admission. Heart rate 60. GENERAL: She looks pale but in no acute distress. at bedside. EXTREMITIES: She has no edema. No cyanosis. CARDIOVASCULAR: Regular rate and rhythm. No gallop, murmurs or rubs. RESPIRATORY: Clear to auscultation bilaterally. No crackles, wheezes or rhonchi. Unit #: [id number] #: [id number] Patient: JAREN ANGEL ABDOMEN: Soft, nontender, nondistended. Positive bowel sounds. NEUROLOGIC: She is awake. She is alert but not quite verbal; just staring into space. She seems to have some muscle jerking that looks like myoclonus. DIAGNOSTIC STUDIES LABORATORY: White count 5.1, "creatinine" 9.6, platelets 286. Sodium 138, potassium 4.9, chloride 108, bicarb 19, BUN 54, creatinine 7.1, calcium 7.9. INR 13. ASSESSMENT AND PLAN 1. Acute kidney injury. Baseline creatinine around 0.6 to 0.7. This acute kidney injury could be an ATN versus prerenal from volume depletion versus Coumadin toxicity. Myoclonus on exam but no rub. Potassium is okay and pH is okay, so no urgent need for renal replacement therapy. Will start with IV fluids for now but suspect she will be needing dialysis if no improvement in renal function. Also, as this point cannot do dialysis because Shiley cannot be placed given that her INR is 13. At this point, strict ins and outs. Urine electrolytes and check renal ultrasound. 2. Sepsis due to UTI, on antibiotics. Will give IV fluids. 3. Metabolic acidosis secondary to acute kidney injury. Will start half normal saline at 75 of sodium bicarb and check labs in the morning. 4. Hypotension. Holding blood pressure medications. IV fluids for now. 5. Coagulopathy secondary to warfarin toxicity. She has been given vitamin K. May need FFP if urgent need for Shiley placement to do renal replacement therapy. Thank you for the consult. Dictated by... Crystal Stack M.D. Natalya TD: 02/22/2017 12:23 JOB #: [id number] CONSULTATION REPORT Page 1 of 1 X X CONSULTATION REPORT
--- NOTE | ~2017-02-15 | A ---
[facility] Nutrition Therapy DATE: 02/17/17 Patient: JAREN Hansen GEORGINAORQUIDEA Physician: SONALI Address: [address] Room/Bed: [address] [place] [address], Zip: [place] [address] Admit Date: 02/15/17 Date of : 33 Height: 5 5 Weight: 141 64 NUTRITIONAL ASSESSMENT: REASON: 1 point nutrition screen risk RE: eating poorly 81 yo female admitted for confusion, hypotension, weakness, TEENA PMH: Chronic back pain, dementia, Afib, sick sinus syndrome s/p pacemaker, HTN, s/p arthroplasty, dyslipidemia, PUD, hiatal hernia Anthropometrics: Ht: 65" Wt: 64 kg BMI: 23.5 Labs: BUN 57 Creat 8.2 Ca++ 6.8 Alb 2.8 ALT 44 GFR 4.1 Meds: Coumadin, zofran, miralax, colace, protonix, lipitor, NaCl I/O & Bowel function: 1680/250, last BM 02/13, n/v Skin Integrity: Bruises- back/ hips/ BLE/ BUE Scar and multiple bruises- back Diet: Renal Assessment: Chart reviewed, events noted. Pt admitted for confusion, weakness, TEENA to have shiley placed for HD to start today for acute renal insufficiency. Nutritionally, the pt has been ordered a renal diet. RD spoke with the pt and her at bedside. Pt was lethargic and nauseated at time of RD visit, and her provided most of the information. Pt's reports that the pt has had poor PO intake x 3-4 weeks due to feeling nauseated and sick. Weight loss is presumed with poor intake over that amount of time; however, the pt and her are unsure about amount of weight loss. Pt consumes Ensure occasionally at home. RD discussed the importance of adequate nutrient intake, and the pt's agreed. Pt's reports to RD that the pt has had upper and lower GI scopes recently that revealed an ulcer. Pt's was unsure of any further details. RD encouraged intake of clear liquids as tolerated when the pt is nauseated. Siiter in room order the pt a clear liquid tray, and she only took a couple bites of applesauce for lunch and did not touch the rest of her food. RD will order supplements as discussed with the pt and her . Dx: Inadequate protein-energy intake RT nausea, decreased appetite AEB poor intake for 3-4 weeks, nausea, likely weight loss of unknown amount. Intervention: 1. Renal diet [facility] Nutrition Therapy DATE: 02/17/17 Patient: JAREN ANGEL Physician: SONALI Address: [address] [place] [address] DRIVE Room/Bed: [address] [place] [address], Zip: [place] [address] Admit Date: 02/15/17 Date of : 33 Height: 5 5 Weight: 141 64 2. Nepro BID 3. Magic cup BID Monitoring, Evaluation and Goals: 1. Oral intake; tolerate >50-75% meals and supplements 2. Labs; WNL: BUN, creat, electrolytes, ALT 3. Weight; prevent unintentional weight loss 4. Skin; prevent breakdown Recommendations: 1. Continue renal diet as tolerated. If the pt's intake does not improve, consider liberalizing to a low sodium or regular diet. 2. Nepro butter pecan BID and Magic cup BID for supplemental nutrition. 3. Consider consulting GI for prolonged nausea reported by the pt's . Pt is at moderate nutritional risk. RD will follow hospital course. Respectfully, LYNN UGALDE RD, LD Food and Nutritional Services [facility] cc: client file
--- NOTE | ~2017-02-15 | US77 ---
[facility] A Service of [facility] & [facility] RADIOLOGY TEXT RESULTS PATIENT: JAREN ANGEL LOCATION: [facility] 309- : 33 UNIT #: [id number] AGE: [address]: Ricky Bonilla MD SEX: F ORDER DR: [id number] [facility] [address]. [place], [place] [address] [id number] I MR#: [id number] Acc #: [id number] NAME: JAREN ANGEL. : 1935 SEX: F STUDY DATE/TIME: 02/17/2017 9:41 UNIT: [address] ROOM: [facility] STUDY DESCRIPTION: US Kidney Bilateral Complete Attending Physician: Ricky Bonilla M.D. Ordering Physician: Ricky Bonilla M.D. Primary Care Physician: Kumar Pugh Jr., M.D. MEDICAL IMAGING REPORT This report is preliminary unless electronic signature is present EXAM Renal ultrasound, 02/17/2017. HISTORY Acute renal insufficiency. Abnormal renal function tests. Elevated BUN of 47, elevated creatinine of 8.2, abnormally low GFR of 4.1 on 02/17/2017. FINDINGS Right kidney measured 10.5 cm, while the left kidney measured 10.4 cm in longitudinal dimensions. There is no evidence of hydronephrosis or nephrolithiasis. No cystic or solid mass lesions were seen in either kidney. There is increased renal cortical echogenicity, characteristic of medical renal disease. The bladder was empty for the exam and, therefore, poorly visualized. IMPRESSION 1. Bilateral increase in renal cortical echogenicity characteristic of medical renal disease. No evidence of hydronephrosis. 2. The bladder was empty for the exam and, therefore, poorly visualized. Dictated by... Theron Cuba M.D. THIS IS AN ELECTRONICALLY VERIFIED REPORT Theron Cuba M.D. at 02/18/2017 10:31 AM JAMIE/gab TD: 02/17/2017 14:05 JOB #: [id number] MEDICAL IMAGING REPORT [facility] A Service of [facility] & [facility] RADIOLOGY TEXT RESULTS PATIENT: JAREN ANGEL LOCATION: [facility] 309- : 33 UNIT #: [id number] AGE: [address]: Ricky Bonilla MD SEX: F ORDER DR: Page 1 of 1 COPY
--- NOTE | ~2017-02-15 | XA75 ---
[facility] A Service of [facility] & [facility] RADIOLOGY TEXT RESULTS PATIENT: JAREN ANGEL LOCATION: [facility] - : 33 UNIT #: [id number] AGE: [address]: Ricky Bonilla MD SEX: F ORDER DR: [id number] [facility] [address] [place], [place] [address] [id number] I MR#: [id number] Acc #: [id number] NAME: JAREN ANGEL. : 1935 SEX: F STUDY DATE/TIME: 02/17/2017 15:59 UNIT: A PCU ROOM: [facility] STUDY DESCRIPTION: XA CVC Non-Tunnel Attending Physician: Ricky Bonilla M.D. Ordering Physician: Ricky Bonilla M.D. Primary Care Physician: Kumar Pugh Jr., M.D. MEDICAL IMAGING REPORT This report is preliminary unless electronic signature is present EXAM Non-tunneled dialysis catheter placement INDICATION Acute renal insufficiency. Patient was noted to have a GFR of 4.1 on February 17, 2017. FINDINGS The procedure was explained to the patient including risks, benefits, potential complications and potential for alternatives forms of treatment. Informed consent was obtained and prior to initiating the procedure a formal time-out procedure was performed. Using all elements of maximal sterile barrier technique including hand hygiene, caps, sterile gowns, gloves and masks the right neck was prepped with 2% Chlorhexidine for cutaneous antisepsis and covered with a large sterile sheet. Real-time sterile ultrasound guidance was used to localize the right internal jugular vein which was found to be patent and compressible. A hard copy ultrasound image was obtained. After local anesthesia with 1% Xylocaine the vein was punctured. Using real-time sterile ultrasound guidance an 0.018 guidewire was advanced into the superior vena cava under fluoroscopic guidance. Micropuncture sheath was advanced over the wire and an Amplatz wire was advanced into the right atrium. The tract was dilated, and a non-tunneled dialysis catheter was advanced over the wire and positioned within the right atrium. Following placement of the catheter it flushed and aspirated easily. It was secured using two 2-0 silk sutures and its position was confirmed with a radiographic image. Total fluoroscopy time was 0.1 minutes. AK was 1 mGy. IMPRESSION Successful placement of a right internal jugular vein non-tunneled dialysis catheter. This catheter is ready for immediate use. Ultrasound and fluoroscopy were used during placement of the catheter and permanent STS. [facility] A Service of [facility] & [facility] RADIOLOGY TEXT RESULTS PATIENT: JAREN ANGEL LOCATION: [facility] 309-01 : 33 UNIT #: [id number] AGE: [address]: Ricky Bonilla MD SEX: F ORDER DR: images were saved. Dictated by... Maci Lea M.D. THIS IS AN ELECTRONICALLY VERIFIED REPORT Maci Lea M.D. at 02/18/2017 3:43 PM STEVE/mer TD: 02/18/2017 11:36 JOB #: [id number] MEDICAL IMAGING REPORT Page 1 of 1 COPY
--- NOTE | ~2017-02-15 | EKG ---
PATIENT: JAREN ANGEL UNIT #: [id number] Ventricular Rate: 60 BPM Atrial Rate: 60 BPM P-R Interval: 226 ms QRS Duration: 82 ms Q-T Interval: 500 ms QTC Calculation(Bezet): 500 ms P [place]: 99 degrees Calculated R [place]: 21 degrees Calculated T [place]: 23 degrees Diagnosis Line: Atrial-paced rhythm with prolonged AV conduction Diagnosis Line: Low voltage QRS Diagnosis Line: Nonspecific T wave abnormality Baseline wander Diagnosis Line: Abnormal ECG Diagnosis Line: When compared with ECG of 09-FEB-2017 19:56, Diagnosis Line: Premature atrial complexes are no longer Present Diagnosis Line: Nonspecific T wave abnormality, worse in Diagnosis Line: Anterolateral leads Diagnosis Line: QT has lengthened Diagnosis Line: Confirmed by TERRI ROCKWELL MD ([id number]) on 02/17/2017 Diagnosis Line: 10:55:41 PM INTERPRETING MD: LULI JEFFERS
--- NOTE | ~2017-02-15 | FU ---
[facility] Nutrition Therapy DATE: 02/21/17 Patient: JARENRODY ANGEL Physician: SONALI Address: [address] [place] [address] DRIVE Room/Bed: [address] [place] [address], Zip: [place] [address] Admit Date: 02/15/17 Date of : [birth year] Height: 5 5 Weight: 136 61.8 NUTRITION MONITORING/FOLLOW-UP: Reason: Follow up Anthropometrics: Wt 02/21: 66.2 kg Labs: Gluc 130 BUN 43 Creat 6.5 Meds: Coumadin, zofran, miralax, protonix, colace, lipitor Skin: no changes Edema: none noted Diet: Puree diet per STUDIO HAND Assessment: Chart reviewed, events noted. Diet ordered per STUDIO HAND recommendations. RD spoke with the pt and sitter in room. Pt seemed confused, and sitter provided intake information. Sitter reports that the pt consumed 50% of Magic Cup and 50% of shake this morning. Pt had HD today, and consumed more than she has recently per sitter report. Please see recommendations below. Dx: Inadequate protein-energy intake RT decreased appetite, possibly AMS AEB poor intake reported by RN, likely weight loss of unknown amount. Intervention: 1. Diet per STUDIO HAND recommendations 2. Magic cup BID Monitoring, Evaluation and Goals: 1. Oral intake; tolerate >50-75% meals and supplements 2. Labs; WNL 3. Weight; prevent unintentional weight loss, preserve lean body mass 4. Skin; prevent breakdown Recommendations: 1. Continue diet per STUDIO HAND recommendations. 2. Continue supplements. 3. Appreciate staff and family encouraging and assisting with PO intake as needed. [facility] Nutrition Therapy DATE: 02/21/17 Patient: JAREN ANGEL Physician: SONALI Address: [address] [place] [address] DRIVE Room/Bed: [address] [place] [address], Zip: [place] [address] Admit Date: 02/15/17 Date of : 33 Height: 5 5 Weight: 136 61.8 Status: Pt is at moderate nutritional risk. RD will continue to follow. Respectfully, LYNN UGALDE, JESUS, LD Food and Nutritional Services [facility] cc: client file
--- NOTE | ~2017-02-15 | HP ---
Unit #: [id number] #: [id number] Patient: JAREN ANGEL [id number] [address] [place], [place] [address] [id number] MR#: [id number] NAME: JAREN ANGEL. ROOM: 309 Age: 81 Sex: F Admission Date: 02/15/2017 : 1935 Attending Physician: Ricky Bonilla M.D. Primary Care Physician: Kumar Pugh Jr., M.D. HISTORY AND PHYSICAL CHIEF COMPLAINT Confusion, hypotension, generalized weakness. DISCUSSION This is an 81-year-old female, who has a history of dementia, history of paroxysmal atrial fibrillation, sick sinus syndrome with pacemaker, hypertension, dyslipidemia, chronic back pain with multiple surgeries, history of compression fracture of the spine. She was brought to the emergency room with chief complaint of having change in mental status, confusion, hypotension as per EMS, EMS also noted that she probably had questionable nonsustained V-tach as per EMS and she was brought to the emergency room and on work she was found to be INR 13, BUN 54, creatinine 7.1, and in the emergency room doctor spoke with the nephrology doctor, Dr. Stack, and she was given thiamine 10 mg IM x1, and eventually admitted for further workup and evaluation. Urine consult for urinary tract infection. She has dementia but her is at bedside who is a very good historian and it is per him that she has been generalized weak for one week period of time and has been having some increased back pain. He said recently she has had multiple procedures with epidurals and recently she too she has compound fracture of 8th vertebrae, and he said he took the patient to the [facility] emergency room on Friday and she was given emergency room Neurontin and also given some other muscle relaxer and since then she has been declining and found to be more confused and declining in health and not been eating, also. He said, this morning and afternoon he couldn't wake her up and he called the EMS and the patient was brought to the emergency room. PAST MEDICAL HISTORY 1. History of peptic ulcer disease/antral ulceration/hiatal hernia. 2. History of pardo diverticulosis. 3. History of atrial fibrillation in the past. 4. History of H. Pylori treated in the past. 5. History of paroxysmal atrial fibrillation on chronic anticoagulation. She follows as per cardiology, Dr. Cartagena. 6. History of dementia. 7. Hypertension. 8. Depression. 9. Dyslipidemia. 10. History of chronic back pain with multiple back surgeries. 11. History of compression fracture of the spine, also as per , 8th vertebra was told recently not too long ago. PAST SURGICAL HISTORY 1. History of back surgery x3. Unit #: [id number] #: [id number] Patient: JAREN ANGEL 2. History of arthroplasty. 3. History of epidurals. 4. History of recent laser surgery, microdiscectomy in [place], [place]. 5. History of hemorrhoidectomy. 6. History of rotator cuff repair. 7. History of permanent pacemaker for sick sinus syndrome. 8. History of breast implants. SOCIAL HISTORY She lives at home with her . She does not smoke. She does not consume alcohol. FAMILY HISTORY Unremarkable. No history of coronary artery disease in the family. No history of diabetes. HOME MEDICATIONS Is the followin. Coumadin 5 mg p.o. daily 2. Prevagan 10 mg daily 3. Exelon 4.6 mg daily 4. Crestor 20 mg daily 5. Betapace 80 mg twice a day 6. Carafate 1 gram twice a day 7. Colace 100 mg daily 8. Oxycodone 10/325 one tablet q.6h p.r.n. 9. Omeprazole 20 mg daily 10. GlycoLax 17 grams daily 11. Potassium chloride 10 mEq daily 12. Neurontin 300 mg three times a day 13. Methocarbamol 750 three times a day (this medication has been recently prescribed as per her , he discontinued both) 14. Lotrel 5/20 one capsule daily 15. Calcium carbonate/vitamin D3 one tablet daily 16. Diltiazem ER 240 mg daily REVIEW OF SYSTEMS Which is obtained from her negative except as in history of present illness. PHYSICAL EXAMINATION GENERAL: Elderly female lying in the bed comfortably, currently not in any distress. She is very slow to respond to questions but appears stable, not in any distress. VITAL SIGNS: Her current vitals are the following, temperature 97.2, heart rate 91, respiratory rate is 15, and blood pressure is 110/52. NEURO: She is alert, oriented x0. HEENT EXAMINATION: Pupils equal reactive to light and accommodation. Head: Normocephalic and atraumatic. Unable to do neuro exam secondary to cooperation. Extraocular muscles are intact. NECK: Supple. No jugular venous distention. No thyromegaly. LUNGS: Decreased air entry but no rhonchi, no wheezing. HEART: S1 and S2 regular rate and rhythm. ABDOMEN: Soft, nontender, and nondistended. Bowel sounds are positive. EXTREMITIES: Inspection normal. No cyanosis, no clubbing, and no edema. SKIN: No rash. Unit #: [id number] #: [id number] Patient: JAREN ANGEL DIAGNOSTIC STUDIES LABORATORY: Laboratory workup is the following, calcium 0.97, glucose 103, troponin less than 0.05, INR is 13. Chemistries, sodium 138, potassium 4.9, chloride 108, glucose 105, BUN 54, creatinine 7.3. LFTs within normal limits. Urinalysis, turbid appearance, LE positive, WBCs too numerous to count. White count 5, hemoglobin 9.6, hematocrit 31.7, platelets 287. Troponin less than 0.05. CARDIOVASCULAR: EKG shows premature atrial complex. IMAGING: CT head negative. Chest x-ray shows moderate lung volume, questionable interstitial changes, questionable early congestive heart failure changes. ASSESSMENT/PLAN 1. Acute kidney injury, emergency room physician did speak to the physical ther, Dr. Stack, will ask consent from him to follow, will start the patient on IV fluids half normal saline with sodium bicarbonate. 2. Urinary tract infection, start the patient on IV Rocephin. 3. Coagulopathy, increase INR. The patient already given vitamin K 10 mg IM x1, will monitor, no active bleeds. 4. Nonsustained V-tach as per EMS report. 5. History of proximal atrial fibrillation, currently rate is controlled. 6. History of sick sinus syndrome status post pacemaker. 7. Hypertension. 8. Dyslipidemia. 9. Advanced dementia. 10. Chronic back pain with multiple back surgeries. 11. History of compression fraction of the spine. Dictated by Thierry Delacruz M.D. RUSTY/nikki TD: 02/16/2017 11:52 JOB #: [id number] HISTORY AND PHYSICAL Page 1 of 1 X X HISTORY AND PHYSICAL
--- NOTE | ~2017-02-15 | CR72 ---
[facility] A Service of [facility] & [facility] RADIOLOGY TEXT RESULTS PATIENT: JAREN ANGEL LOCATION: [facility] 309- : 33 UNIT #: [id number] AGE: [address]: Ricky Bonilla MD SEX: F ORDER DR: [id number] [facility] [address] [facility]. [place], [place] [address] [id number] I MR#: [id number] Acc #: [id number] NAME: JAREN ANGEL. : 1935 SEX: F STUDY DATE/TIME: 02/15/2017 16:21 UNIT: CEDOF ROOM: 24250 STUDY DESCRIPTION: CR Chest Single View Portable Attending Physician: Rema Felix M.D. Ordering Physician: Ed Jimi Olmos M.D. Primary Care Physician: Kumar Pugh Jr., M.D. MEDICAL IMAGING REPORT This report is preliminary unless electronic signature is present EXAM Portable chest. HISTORY Altered mental status, hypotensive, shortness of air x2 days COMPARISON 02/03/2017 FINDINGS Portable view of the chest demonstrates moderate lung volumes. Mild interstitial prominence with a fine reticular pattern could represent interstitial fibrosis or edema. Mild cardiomegaly. Diffuse aortic atherosclerotic changes. Dual lead pacemaker noted. Densities over the right breast and left breast region suggest implants. Generalized osteopenia. No pneumothorax. Overall, no definite acute process. There is cardiomegaly and mild interstitial prominence which could reflect early CHF, though pulmonary vascular is felt to be within normal limits. Dictated by... Sumi Cruz M.D. THIS IS AN ELECTRONICALLY VERIFIED REPORT Sumi Cruz M.D. at 02/16/2017 10:51 PM HERBIE/padmini TD: 02/16/2017 07:27 JOB #: [id number] MEDICAL IMAGING REPORT Page 1 of 1 COPY
--- NOTE | ~2017-02-15 | CR63 ---
[facility] A Service of [facility] & [facility] RADIOLOGY TEXT RESULTS PATIENT: JAREN ANGEL LOCATION: [facility] 229-01 : 33 UNIT #: [id number] AGE: [address]: Ricky Bonilla MD SEX: F ORDER DR: [id number] [facility] [address]. [place], [place] [address] [id number] I MR#: [id number] Acc #: [id number] NAME: JAREN ANGEL : 1935 SEX: F STUDY DATE/TIME: 02/28/2017 18:25 UNIT: [facility] ROOM: 229 STUDY DESCRIPTION: CR Chest 2 View Attending Physician: Ricky Bonilla M.D. Ordering Physician: Ricky Bonilla M.D. Primary Care Physician: Kumar Pugh Jr., M.D. MEDICAL IMAGING REPORT This report is preliminary unless electronic signature is present EXAM PA and lateral chest INDICATIONS 81-year-old female with shortness of breath and altered mental status since February 13. Comparison with 02/15/2017 FINDINGS There has been interval placement of a tunneled dialysis catheter. No acute-appearing infiltrate in the lungs. Heart size stable. Atherosclerotic calcification of the aorta. Degenerative changes thoracic spine. There is a mid thoracic spine compression deformity, age indeterminate. IMPRESSION 1. New since the previous chest x-ray is a right IJ tunneled dialysis catheter. 2. No acute-appearing infiltrate. Dictated by... Sonny Cruz M.D. THIS IS AN ELECTRONICALLY VERIFIED REPORT Sonny Cruz M.D. at 03/03/2017 8:01 AM CHRISTIANO/alexi TD: 03/01/2017 01:39 JOB #: [id number] MEDICAL IMAGING REPORT Page 1 of 1 COPY
[2017-02-15 16:27] LABS: POC - CKMB 12.4 ng/mL (0.0-7.9); POC - TROPONIN <0.05 ng/mL (<=0.05)
[2017-02-15 16:52] LABS: EOSINOPHIL# 0.1 X10e3 (0-0.7); EOSINOPHIL% 1.8 % (0.0-7.0); HEMATOCRIT 31.7 % (35.0-45.0); HEMOGLOBIN 9.6 gm/dL (12.0-16.0); LYMPHOCYTE# 0.8 X10e3 (1.0-3.5); LYMPHOCYTE% 15.5 % (17.0-45.0); MEAN CELL VOLUME 78.9 FL (83-96); MEAN CORPUSCULAR HEMOGLOBIN 23.9 PG (28-34); MEAN CORPUSCULAR HGB CONC 30.3 g/dL (30-36); MEAN PLATELET VOLUME 7.7 FL (6.5-11.5); MONOCYTE# 0.6 X10e3 (0-1.0); NEUTROPHIL# 3.5 X10e3 (1.5-7.1); NEUTROPHIL% 69.7 % (40-75); PLATELET COUNT 286 X10e3 (140-420); RED BLOOD COUNT 4.01 X10e (3.90-5.30); RED CELL DISTRIBUTION WIDTH 20.7 % (11.0-15.5); WHITE BLOOD COUNT 5.1 X10e3 (4.0-10.5)
[2017-02-15 16:52] LABS: URINE SOURCE CLEAN CATCH
[2017-02-15 16:55] LABS: DIFF IND NO
[2017-02-15 17:02] LABS: URINE APPEARANCE TURBID; URINE BLOOD 3+ (NEG); URINE COLOR DK YELLOW; URINE GLUCOSE NEG (NEG); URINE KETONE TRACE (NEG); URINE LEUKOCYTE ESTERASE 3+ (NEG); URINE NITRATE NEG (NEG); URINE PROTEIN 2+ (NEG); URINE SPECIFIC GRAVITY 1.026 (1.003-1.035)
[2017-02-15 17:03] LABS: CULTURE INDICATED? YES; URBCS1 AUWI 25-50 /[HPF] (0-2); URINE BACTERIA AUWI 2+ (NEGATIVE); URINE SQUAMOUS EPITHELIAL CELL MOD /[HPF]; UWBCS1 AUWI INNUM (0-5)
[2017-02-15 17:08] LABS: URINE BILIRUBIN NEG (NEG)
[2017-02-15 17:16] LABS: ALBUMIN SERUM 3.3 g/dL (3.5-5.0); BILIRUBIN, DIRECT 0.1 mg/dL (0.0-0.2); BILIRUBIN,INDIRECT 0.5 mg/dL (0.0-0.9); BILIRUBIN,TOTAL 0.6 mg/dL (0.2-2.0); BUN/CREATININE RATIO 7.6; CALCIUM SERUM 7.9 mg/dL (8.4-10.2); CREATININE SERUM 7.1 mg/dL (0.6-1.4); GLOM FILT RATE Estimated 4.9 mL/min (>60); POTASSIUM 4.9 mmol/L (3.5-5.1); PROTEIN TOTAL SERUM 6.4 g/dL (6.0-8.3)
[2017-02-15 17:33] LABS: PROTHROMBIN TIME (PATIENT) >150.0 SECONDS (9.6-11.5)
[2017-02-15 17:34] LABS: INR >13.1
[2017-02-15 17:57] LABS: POC - CKMB 12.9 ng/mL (0.0-7.9); POC - TROPONIN <0.05 ng/mL (<=0.05)
[2017-02-15] MEDS ORDERED: NEURONTIN300 MG PO (18:21)
[2017-02-15] MEDS ORDERED: ROBAXIN PO (18:22)
[2017-02-15] MEDS ORDERED: LOTREL 5-20 MG1 CAP PO (18:23)
[2017-02-15] MEDS ORDERED: CALCIUM 500 +1 EAC2 PO (18:23)
[2017-02-15] MEDS ORDERED: COLACE PO (18:27)
[2017-02-15] MEDS ORDERED: DILTIAZEM 24HR240 MG PO (18:27)
[2017-02-15] MEDS ORDERED: OXYCODONE-APAP1 EAC5 PO (18:28)
[2017-02-15] MEDS ORDERED: OMEPRAZOLE20 M2 PO (18:28)
[2017-02-15] MEDS ORDERED: GLYCOLAX119 GM PO (18:29)
[2017-02-15] MEDS ORDERED: POTASSIUM CHLO10 MEQ PO (18:29)
[2017-02-15] MEDS ORDERED: EXELON1 PATCH .2 (18:30)
[2017-02-15] MEDS ORDERED: PREVAGAN PO (18:30)
[2017-02-15] MEDS ORDERED: CRESTOR PO (18:31)
[2017-02-15] MEDS ORDERED: EXELON4.6 MG EXT (18:31)
[2017-02-15] MEDS ORDERED: BETAPACE PO (18:32)
[2017-02-15] MEDS ORDERED: CARAFATE1 G PO (18:32)
[2017-02-15] MEDS ORDERED: COUMADIN PO (18:33)
[2017-02-15 23:27] LABS: BUN/CREATININE RATIO 7.53; CALCIUM SERUM 7.5 mg/dL (8.4-10.2); CREATININE SERUM 7.3 mg/dL (0.6-1.4); GLOM FILT RATE Estimated 4.7 mL/min (>60); POTASSIUM 4.6 mmol/L (3.5-5.1)
[2017-02-16 06:17] LABS: BASOPHIL% 0.6 % (0-2.5); EOSINOPHIL# 0.1 X10e3 (0-0.7); EOSINOPHIL% 1.3 % (0.0-7.0); HEMATOCRIT 30.3 % (35.0-45.0); HEMOGLOBIN 9.5 gm/dL (12.0-16.0); LYMPHOCYTE# 0.7 X10e3 (1.0-3.5); LYMPHOCYTE% 11.7 % (17.0-45.0); MEAN CELL VOLUME 77.9 FL (83-96); MEAN CORPUSCULAR HEMOGLOBIN 24.4 PG (28-34); MEAN CORPUSCULAR HGB CONC 31.3 g/dL (30-36); MEAN PLATELET VOLUME 7.2 FL (6.5-11.5); MONOCYTE# 0.8 X10e3 (0-1.0); MONOCYTE% 12.2 % (3.0-12.0); NEUTROPHIL# 4.5 X10e3 (1.5-7.1); NEUTROPHIL% 74.2 % (40-75); PLATELET COUNT 262 X10e3 (140-420); RED BLOOD COUNT 3.88 X10e (3.90-5.30); WHITE BLOOD COUNT 6.1 X10e3 (4.0-10.5)
[2017-02-16 06:19] LABS: DIFF IND NO
[2017-02-16 06:38] LABS: ALBUMIN SERUM 3.3 g/dL (3.5-5.0); BILIRUBIN,TOTAL 0.7 mg/dL (0.2-2.0); BUN/CREATININE RATIO 7.2; CALCIUM SERUM 7.2 mg/dL (8.4-10.2); CREATININE SERUM 7.5 mg/dL (0.6-1.4); GLOM FILT RATE Estimated 4.6 mL/min (>60); POTASSIUM 4.5 mmol/L (3.5-5.1); PROTEIN TOTAL SERUM 6.2 g/dL (6.0-8.3)
[2017-02-16 06:47] LABS: PROTHROMBIN TIME (PATIENT) 110.4 SECONDS (9.6-11.5)
[2017-02-16 06:51] LABS: INR 9.7; PARTIAL THROMBOPLASTIN TIME 101.5 SECONDS (23.5-31.3)
[2017-02-16 17:00] LABS: PROTHROMBIN TIME (PATIENT) 32.8 SECONDS (9.6-11.5)
[2017-02-17 00:11] LABS: CREATININE,RANDOM URINE 89 mg/dL; SODIUM URINE RANDOM 74 mmol/L
[2017-02-17 08:10] LABS: BASOPHIL# 0.1 X10e3 (0-0.3); BASOPHIL% 0.9 % (0-2.5); EOSINOPHIL# 0.1 X10e3 (0-0.7); EOSINOPHIL% 1.5 % (0.0-7.0); HEMATOCRIT 28.8 % (35.0-45.0); LYMPHOCYTE# 0.8 X10e3 (1.0-3.5); LYMPHOCYTE% 13.4 % (17.0-45.0); MEAN CELL VOLUME 78.4 FL (83-96); MEAN CORPUSCULAR HEMOGLOBIN 24.5 PG (28-34); MEAN CORPUSCULAR HGB CONC 31.3 g/dL (30-36); MEAN PLATELET VOLUME 7.8 FL (6.5-11.5); MONOCYTE# 0.8 X10e3 (0-1.0); MONOCYTE% 14.1 % (3.0-12.0); NEUTROPHIL# 4.1 X10e3 (1.5-7.1); NEUTROPHIL% 70.1 % (40-75); PLATELET COUNT 256 X10e3 (140-420); RED BLOOD COUNT 3.68 X10e (3.90-5.30); RED CELL DISTRIBUTION WIDTH 24.9 % (11.0-15.5); WHITE BLOOD COUNT 5.9 X10e3 (4.0-10.5)
[2017-02-17 08:12] LABS: DIFF IND YES
[2017-02-17 08:20] LABS: INR 1.6
[2017-02-17 08:37] LABS: ALBUMIN SERUM 2.8 g/dL (3.5-5.0); BILIRUBIN,TOTAL 0.6 mg/dL (0.2-2.0); BUN/CREATININE RATIO 6.95; CALCIUM SERUM 6.8 mg/dL (8.4-10.2); CREATININE SERUM 8.2 mg/dL (0.6-1.4); GLOM FILT RATE Estimated 4.1 mL/min (>60); POTASSIUM 4.3 mmol/L (3.5-5.1); PROTEIN TOTAL SERUM 5.4 g/dL (6.0-8.3)
[2017-02-17 08:40] LABS: PLATELET ESTIMATE NORMAL (NORMAL)
[2017-02-17 08:41] LABS: ELLIPTOCYTES PRESENT
[2017-02-17 08:42] LABS: BURR CELLS PRESENT
[2017-02-17 08:44] LABS: HYPOCHROMIA SL; MICROCYTOSIS SL
[2017-02-17 15:12] LABS: HEMATOCRIT 31.5 % (35.0-45.0); HEMOGLOBIN 9.9 gm/dL (12.0-16.0)
[2017-02-17 21:13] LABS: HEMATOCRIT 31.5 % (35.0-45.0)
[2017-02-18 03:33] LABS: HEMATOCRIT 28.5 % (35.0-45.0); HEMOGLOBIN 9.2 gm/dL (12.0-16.0)
[2017-02-18 08:28] LABS: CALCIUM SERUM 7.1 mg/dL (8.4-10.2); GLOM FILT RATE Estimated 7.4 mL/min (>60); MAGNESIUM 1.8 mg/dL (1.6-3.0); PHOSPHOROUS 1.9 mg/dL (2.5-4.6); POTASSIUM 4.1 mmol/L (3.5-5.1)
[2017-02-18 09:33] LABS: INR 1.3; PROTHROMBIN TIME (PATIENT) 13.4 SECONDS (9.6-11.5)
[2017-02-18 09:43] LABS: HEMATOCRIT 31.2 % (35.0-45.0); MEAN CELL VOLUME 77.4 FL (83-96); MEAN CORPUSCULAR HEMOGLOBIN 24.7 PG (28-34); MEAN CORPUSCULAR HGB CONC 31.9 g/dL (30-36); MEAN PLATELET VOLUME 7.5 FL (6.5-11.5); RED BLOOD COUNT 4.03 X10e (3.90-5.30); RED CELL DISTRIBUTION WIDTH 25.1 % (11.0-15.5); WHITE BLOOD COUNT 8.3 X10e3 (4.0-10.5)
[2017-02-19 05:35] LABS: HEMATOCRIT 24.6 % (35.0-45.0); HEMOGLOBIN 8.1 gm/dL (12.0-16.0); MEAN CELL VOLUME 76.3 FL (83-96); MEAN CORPUSCULAR HEMOGLOBIN 25.2 PG (28-34); MEAN PLATELET VOLUME 7.2 FL (6.5-11.5); RED BLOOD COUNT 3.22 X10e (3.90-5.30); RED CELL DISTRIBUTION WIDTH 25.2 % (11.0-15.5); WHITE BLOOD COUNT 5.6 X10e3 (4.0-10.5)
[2017-02-19 05:45] LABS: INR 1.4; PROTHROMBIN TIME (PATIENT) 15.4 SECONDS (9.6-11.5)
[2017-02-19 06:39] LABS: BUN/CREATININE RATIO 5.3; CALCIUM SERUM 6.8 mg/dL (8.4-10.2); CREATININE SERUM 4.9 mg/dL (0.6-1.4); GLOM FILT RATE Estimated 7.6 mL/min (>60); MAGNESIUM 1.7 mg/dL (1.6-3.0)
[2017-02-19 06:44] LABS: POTASSIUM 2.9 mmol/L (3.5-5.1)
[2017-02-19 14:53] LABS: BUN/CREATININE RATIO 5.66; CALCIUM SERUM 7.1 mg/dL (8.4-10.2); CREATININE SERUM 5.3 mg/dL (0.6-1.4); GLOM FILT RATE Estimated 6.9 mL/min (>60); POTASSIUM 3.3 mmol/L (3.5-5.1)
[2017-02-20 06:22] LABS: BUN/CREATININE RATIO 5.96; CALCIUM SERUM 7.2 mg/dL (8.4-10.2); CREATININE SERUM 5.7 mg/dL (0.6-1.4); GLOM FILT RATE Estimated 6.3 mL/min (>60); MAGNESIUM 1.8 mg/dL (1.6-3.0); PHOSPHOROUS 3.6 mg/dL (2.5-4.6); POTASSIUM 3.3 mmol/L (3.5-5.1)
[2017-02-20 07:34] LABS: MEAN CELL VOLUME 77.5 FL (83-96); MEAN CORPUSCULAR HEMOGLOBIN 24.9 PG (28-34); MEAN CORPUSCULAR HGB CONC 32.2 g/dL (30-36); MEAN PLATELET VOLUME 7.8 FL (6.5-11.5); RED BLOOD COUNT 3.62 X10e (3.90-5.30); RED CELL DISTRIBUTION WIDTH 25.3 % (11.0-15.5)
[2017-02-20 07:47] LABS: INR 2.3
[2017-02-20 07:48] LABS: PROTHROMBIN TIME (PATIENT) 24.6 SECONDS (9.6-11.5)
[2017-02-20 15:36] LABS: HA AB IGM (HEPPAN) Nonreactive (Nonreactive); HB CORE AB IGM (HEPPAN) Nonreactive (Nonreactive); HB S AG (HEPPAN) Nonreactive (Nonreactive); HEP C AB (HEPPAN) Nonreactive (Nonreactive); HEP C AB SIGNAL TO CUTOFF 0.01 ratio (<1.00)
[2017-02-21 09:36] LABS: HEMOGLOBIN 9.3 gm/dL (12.0-16.0); MEAN CELL VOLUME 77.2 FL (83-96); MEAN CORPUSCULAR HEMOGLOBIN 24.7 PG (28-34); MEAN PLATELET VOLUME 7.8 FL (6.5-11.5); RED BLOOD COUNT 3.76 X10e (3.90-5.30); RED CELL DISTRIBUTION WIDTH 25.3 % (11.0-15.5); WHITE BLOOD COUNT 6.8 X10e3 (4.0-10.5)
[2017-02-21 09:47] LABS: BUN/CREATININE RATIO 6.61; CALCIUM SERUM 7.2 mg/dL (8.4-10.2); CREATININE SERUM 6.5 mg/dL (0.6-1.4); GLOM FILT RATE Estimated 5.4 mL/min (>60); MAGNESIUM 1.8 mg/dL (1.6-3.0); POTASSIUM 3.8 mmol/L (3.5-5.1)
[2017-02-22 09:34] LABS: HEMATOCRIT 28.2 % (35.0-45.0); MEAN CELL VOLUME 76.8 FL (83-96); MEAN CORPUSCULAR HEMOGLOBIN 24.7 PG (28-34); MEAN CORPUSCULAR HGB CONC 32.1 g/dL (30-36); MEAN PLATELET VOLUME 7.9 FL (6.5-11.5); RED BLOOD COUNT 3.67 X10e (3.90-5.30); RED CELL DISTRIBUTION WIDTH 25.8 % (11.0-15.5); WHITE BLOOD COUNT 6.6 X10e3 (4.0-10.5)
[2017-02-22 09:45] LABS: INR 2.2; PROTHROMBIN TIME (PATIENT) 23.4 SECONDS (9.6-11.5)
[2017-02-22 10:09] LABS: BUN/CREATININE RATIO 6.2; CALCIUM SERUM 7.5 mg/dL (8.4-10.2); CREATININE SERUM 2.9 mg/dL (0.6-1.4); GLOM FILT RATE Estimated 14.4 mL/min (>60); MAGNESIUM 1.7 mg/dL (1.6-3.0); PHOSPHOROUS 1.9 mg/dL (2.5-4.6); POTASSIUM 3.2 mmol/L (3.5-5.1)
[2017-02-22 10:31] LABS: FOLATE (FOLIC ACID) 7.1 ng/mL (>5.8)
[2017-02-23 06:10] LABS: HEMATOCRIT 27.4 % (35.0-45.0); HEMOGLOBIN 8.8 gm/dL (12.0-16.0); MEAN CORPUSCULAR HEMOGLOBIN 24.8 PG (28-34); MEAN CORPUSCULAR HGB CONC 32.2 g/dL (30-36); MEAN PLATELET VOLUME 7.9 FL (6.5-11.5); RED BLOOD COUNT 3.56 X10e (3.90-5.30); RED CELL DISTRIBUTION WIDTH 25.3 % (11.0-15.5); WHITE BLOOD COUNT 5.4 X10e3 (4.0-10.5)
[2017-02-23 06:20] LABS: INR 1.7; PROTHROMBIN TIME (PATIENT) 18.5 SECONDS (9.6-11.5)
[2017-02-23 06:42] LABS: BUN/CREATININE RATIO 6.5; CALCIUM SERUM 7.6 mg/dL (8.4-10.2); GLOM FILT RATE Estimated 9.7 mL/min (>60); MAGNESIUM 1.7 mg/dL (1.6-3.0); POTASSIUM 3.3 mmol/L (3.5-5.1)
[2017-02-24 06:26] LABS: HEMATOCRIT 29.1 % (35.0-45.0); HEMOGLOBIN 9.3 gm/dL (12.0-16.0); MEAN CELL VOLUME 77.4 FL (83-96); MEAN CORPUSCULAR HEMOGLOBIN 24.7 PG (28-34); MEAN CORPUSCULAR HGB CONC 31.8 g/dL (30-36); MEAN PLATELET VOLUME 7.5 FL (6.5-11.5); RED BLOOD COUNT 3.76 X10e (3.90-5.30); RED CELL DISTRIBUTION WIDTH 25.3 % (11.0-15.5)
[2017-02-24 06:40] LABS: PROTHROMBIN TIME (PATIENT) 21.2 SECONDS (9.6-11.5)
[2017-02-24 07:10] LABS: BUN/CREATININE RATIO 6.81; CREATININE SERUM 4.4 mg/dL (0.6-1.4); GLOM FILT RATE Estimated 8.7 mL/min (>60); POTASSIUM 3.2 mmol/L (3.5-5.1)
[2017-02-25 05:57] LABS: HEMATOCRIT 27.9 % (35.0-45.0); HEMOGLOBIN 8.9 gm/dL (12.0-16.0); MEAN CELL VOLUME 78.3 FL (83-96); MEAN CORPUSCULAR HEMOGLOBIN 24.9 PG (28-34); MEAN CORPUSCULAR HGB CONC 31.8 g/dL (30-36); MEAN PLATELET VOLUME 7.8 FL (6.5-11.5); RED BLOOD COUNT 3.56 X10e (3.90-5.30); RED CELL DISTRIBUTION WIDTH 25.5 % (11.0-15.5); WHITE BLOOD COUNT 4.9 X10e3 (4.0-10.5)
[2017-02-25 06:29] LABS: INR 1.6; PARTIAL THROMBOPLASTIN TIME 45.6 SECONDS (23.5-31.3); PROTHROMBIN TIME (PATIENT) 17.4 SECONDS (9.6-11.5)
[2017-02-25 07:14] LABS: BUN/CREATININE RATIO 5.88; CALCIUM SERUM 8.3 mg/dL (8.4-10.2); CREATININE SERUM 1.7 mg/dL (0.6-1.4); GLOM FILT RATE Estimated 27.4 mL/min (>60); POTASSIUM 3.3 mmol/L (3.5-5.1)
[2017-02-26 07:04] LABS: HEMATOCRIT 25.5 % (35.0-45.0); MEAN CELL VOLUME 79.2 FL (83-96); MEAN CORPUSCULAR HEMOGLOBIN 24.8 PG (28-34); MEAN CORPUSCULAR HGB CONC 31.4 g/dL (30-36); MEAN PLATELET VOLUME 9.7 FL (6.5-11.5); RED BLOOD COUNT 3.22 X10e (3.90-5.30); RED CELL DISTRIBUTION WIDTH 24.7 % (11.0-15.5); WHITE BLOOD COUNT 5.3 X10e3 (4.0-10.5)
[2017-02-26 08:01] LABS: INR 1.3; PROTHROMBIN TIME (PATIENT) 13.8 SECONDS (9.6-11.5)
[2017-02-26 08:21] LABS: BUN/CREATININE RATIO 7.85; CALCIUM SERUM 8.6 mg/dL (8.4-10.2); CREATININE SERUM 2.8 mg/dL (0.6-1.4); MAGNESIUM 1.6 mg/dL (1.6-3.0)
[2017-02-27 07:24] LABS: INR 1.1; PROTHROMBIN TIME (PATIENT) 11.4 SECONDS (9.6-11.5)
[2017-02-27 07:31] LABS: HEMATOCRIT 30.4 % (35.0-45.0); HEMOGLOBIN 9.6 gm/dL (12.0-16.0); MEAN CELL VOLUME 77.8 FL (83-96); MEAN CORPUSCULAR HEMOGLOBIN 24.6 PG (28-34); MEAN CORPUSCULAR HGB CONC 31.6 g/dL (30-36); MEAN PLATELET VOLUME 8.1 FL (6.5-11.5); RED BLOOD COUNT 3.9 X10e (3.90-5.30); RED CELL DISTRIBUTION WIDTH 25.6 % (11.0-15.5)
[2017-02-27 07:46] LABS: BUN/CREATININE RATIO 4.76; CALCIUM SERUM 8.2 mg/dL (8.4-10.2); CREATININE SERUM 2.1 mg/dL (0.6-1.4); GLOM FILT RATE Estimated 21.2 mL/min (>60); MAGNESIUM 1.9 mg/dL (1.6-3.0); PHOSPHOROUS 1.3 mg/dL (2.5-4.6)
[2017-02-27 07:49] LABS: POTASSIUM 2.9 mmol/L (3.5-5.1)
[2017-02-28 06:27] LABS: HEMATOCRIT 26.2 % (35.0-45.0); HEMOGLOBIN 8.3 gm/dL (12.0-16.0); MEAN CELL VOLUME 78.7 FL (83-96); MEAN CORPUSCULAR HGB CONC 31.8 g/dL (30-36); MEAN PLATELET VOLUME 8.1 FL (6.5-11.5); RED BLOOD COUNT 3.33 X10e (3.90-5.30); RED CELL DISTRIBUTION WIDTH 25.2 % (11.0-15.5); WHITE BLOOD COUNT 3.5 X10e3 (4.0-10.5)
[2017-02-28 06:51] LABS: BUN/CREATININE RATIO 6.81; CALCIUM SERUM 7.6 mg/dL (8.4-10.2); CREATININE SERUM 2.2 mg/dL (0.6-1.4); GLOM FILT RATE Estimated 20.1 mL/min (>60); MAGNESIUM 1.6 mg/dL (1.6-3.0); PHOSPHOROUS 6.4 mg/dL (2.5-4.6); POTASSIUM 3.3 mmol/L (3.5-5.1)
[2017-02-28 07:02] LABS: INR 1.2; PROTHROMBIN TIME (PATIENT) 12.5 SECONDS (9.6-11.5)
[2017-03-01 05:33] LABS: HEMOGLOBIN 9.1 gm/dL (12.0-16.0); MEAN CELL VOLUME 77.5 FL (83-96); MEAN CORPUSCULAR HEMOGLOBIN 25.2 PG (28-34); MEAN CORPUSCULAR HGB CONC 32.6 g/dL (30-36); MEAN PLATELET VOLUME 8.1 FL (6.5-11.5); RED BLOOD COUNT 3.61 X10e (3.90-5.30); RED CELL DISTRIBUTION WIDTH 25.9 % (11.0-15.5); WHITE BLOOD COUNT 5.1 X10e3 (4.0-10.5)
[2017-03-01 06:38] LABS: BUN/CREATININE RATIO 5.38; CALCIUM SERUM 8.1 mg/dL (8.4-10.2); CREATININE SERUM 1.3 mg/dL (0.6-1.4); GLOM FILT RATE Estimated 37.9 mL/min (>60); MAGNESIUM 2.6 mg/dL (1.6-3.0); PHOSPHOROUS 1.8 mg/dL (2.5-4.6); POTASSIUM 3.8 mmol/L (3.5-5.1)
[2017-03-02 05:16] LABS: HEMATOCRIT 29.3 % (35.0-45.0); HEMOGLOBIN 9.5 gm/dL (12.0-16.0); MEAN CELL VOLUME 78.4 FL (83-96); MEAN CORPUSCULAR HEMOGLOBIN 25.4 PG (28-34); MEAN CORPUSCULAR HGB CONC 32.4 g/dL (30-36); RED BLOOD COUNT 3.73 X10e (3.90-5.30); RED CELL DISTRIBUTION WIDTH 25.6 % (11.0-15.5)
[2017-03-02 05:25] LABS: INR 1.2; PARTIAL THROMBOPLASTIN TIME 30.4 SECONDS (23.5-31.3); PROTHROMBIN TIME (PATIENT) 12.4 SECONDS (9.6-11.5)
[2017-03-02 06:40] LABS: BUN/CREATININE RATIO 8.33; CALCIUM SERUM 8.2 mg/dL (8.4-10.2); CREATININE SERUM 2.4 mg/dL (0.6-1.4); GLOM FILT RATE Estimated 18.1 mL/min (>60); POTASSIUM 3.9 mmol/L (3.5-5.1)
[2017-03-03 07:05] LABS: HEMATOCRIT 29.3 % (35.0-45.0); HEMOGLOBIN 9.2 gm/dL (12.0-16.0); MEAN CELL VOLUME 79.5 FL (83-96); MEAN CORPUSCULAR HEMOGLOBIN 25.1 PG (28-34); MEAN CORPUSCULAR HGB CONC 31.5 g/dL (30-36); MEAN PLATELET VOLUME 8.4 FL (6.5-11.5); RED BLOOD COUNT 3.69 X10e (3.90-5.30); RED CELL DISTRIBUTION WIDTH 25.5 % (11.0-15.5); WHITE BLOOD COUNT 4.1 X10e3 (4.0-10.5)
[2017-03-03 07:50] LABS: BUN/CREATININE RATIO 10.71; CALCIUM SERUM 8.2 mg/dL (8.4-10.2); CREATININE SERUM 2.8 mg/dL (0.6-1.4); POTASSIUM 3.6 mmol/L (3.5-5.1)
[2017-03-03 18:03] LABS: INR 1.4; PROTHROMBIN TIME (PATIENT) 15.4 SECONDS (9.6-11.5)
[2017-03-04 07:58] LABS: INR 1.5; PROTHROMBIN TIME (PATIENT) 15.5 SECONDS (9.6-11.5)
[2017-03-04 08:17] LABS: CALCIUM SERUM 8.4 mg/dL (8.4-10.2); GLOM FILT RATE Estimated 22.5 mL/min (>60); POTASSIUM 3.6 mmol/L (3.5-5.1)
== END 2017-03-04 13:57 | DRG 682 ==
LOC: CED 16:39 → CEDOF 21:50 → C3A PCU 02-16 10:05 → C2A 02-26 16:47
PROVIDERS: Emergency Medicine; Internal Medicine; Internal Medicine Nephrology; Physician Assistant Medical
PROC: 02HV33Z Insertion of Infusion Device into Superior Vena Cava, Percutaneous Approach (ICD-10-PCS; 2017-02-17)
PROC: B518YZA Fluoroscopy of Superior Vena Cava using Other Contrast, Guidance (ICD-10-PCS; 2017-02-17)
PROC: B548ZZA Ultrasonography of Superior Vena Cava, Guidance (ICD-10-PCS; 2017-02-17)
PROC: 5A1D60Z (ICD-10-PCS; principal; 2017-02-18)
PROC: 05H433Z Insertion of Infusion Device into Left Innominate Vein, Percutaneous Approach (ICD-10-PCS; 2017-02-19)
PROC: B54NZZA Ultrasonography of Left Upper Extremity Veins, Guidance (ICD-10-PCS; 2017-02-19)
DX: N17.0 Acute kidney failure with tubular necrosis (principal); G92 Toxic encephalopathy; I47.2 Ventricular tachycardia; E87.2 Acidosis; I95.9 Hypotension, unspecified; I48.2 Chronic atrial fibrillation; N39.0 Urinary tract infection, site not specified; F03.90 Unspecified dementia, unspecified severity, without behavioral disturbance, psychotic disturbance, mood disturbance, and anxiety; D64.9 Anemia, unspecified; R13.11 Dysphagia, oral phase; B96.20 Unspecified Escherichia coli [E. coli] as the cause of diseases classified elsewhere; I10 Essential (primary) hypertension; E78.5 Hyperlipidemia, unspecified; T45.515A Adverse effect of anticoagulants, initial encounter; Z98.82 Breast implant status; M54.9 Dorsalgia, unspecified; R13.13 Dysphagia, pharyngeal phase; Z66 Do not resuscitate
CPT/HCPCS: 36415; 51702; 70450; 71010; 71020; 74176; 76770; 76937; 77001; 80048; 80053; 80074; 80076; 81003; 82330; 82550; 82553; 82570; 82607; 82728; 82746; 82947; 83540; 83550; 83605; 83735; 84100; 84132; 84300; 84484; 85014; 85018; 85025; 85027; 85610; 85730; 87040; 87086; 87088; 87186; 92526; 92610; 93005; 96360; 96372; 97110; 97116; 97162; 97166; 97530; 97535; 99291; C1750; C1894; G8978-GP; G8979-GP; G8980-GP; G8987-GO; G8988-GO; G8989-GO; G8996-GN; G8997-GN; G8998-GN; J0360; J0610; J0690; J0696; J0885; J1630; J1644; J1650; J2250; J2405; J3010; J3430; J3475; Q4081

== ENCOUNTER 2017-03-07 12:57 | Emergency (ER) | payer MEDICARE, OTHER ==
--- NOTE | ~2017-03-07 | CR181 ---
[facility] A Service of [facility] & [facility] RADIOLOGY TEXT RESULTS PATIENT: JAREN ANGEL LOCATION: SED : 33 UNIT #: [id number] AGE: [address]: Barrington Ngo MD SEX: F ORDER DR: [id number] [place] [id number] E MR#: [id number] Acc #: [id number] NAME: JAREN ANGEL : 1935 SEX: F STUDY DATE/TIME: 03/07/2017 12:33 UNIT: SED ROOM: STUDY DESCRIPTION: CR Lumbar Spine 2 or 3 Views Attending Physician: Barrington Ngo M.D. Referring Physician: Barrington Ngo M.D. Ordering Physician: Barrington Ngo M.D. Primary Care Physician: Kumar Pugh Jr., M.D. MEDICAL IMAGING REPORT This report is preliminary unless electronic signature is present. EXAM Lumbosacral spine 2 views 03/07/2017 HISTORY Fell today at dialysis with back pain. AP and lateral views are obtained. FINDINGS The examination shows postop changes of posterior fixation of the L3-4 level. There is marked disc space narrowing at the L2-3 level. There are compression fractures of T12 and L1 with approximately 20% loss at T12 and approximately 30% to 40% loss at L1. Patient has apparently had a vertebroplasty at L5. Alignment is relatively normal. There may be a very mild scoliosis present. No acute fractures are identified. CONCLUSION 1. Compression fractures of T12 and L1. They are present on the patient's prior CT of 02/17/2017. 2. Status post fusion at L3-4. No change in alignment. 3. Marked degenerative disc disease at L2-3. 4. Compression fracture of L5 status post vertebroplasty. Dictated by... Kumar Jarrell M.D. THIS IS AN ELECTRONICALLY VERIFIED REPORT Kumar Jarrell M.D. at 03/10/2017 7:21 AM JAVON/azael TD: 03/07/2017 16:13 JOB #: [id number] [facility] A Service of [facility] & [facility] RADIOLOGY TEXT RESULTS PATIENT: JAREN ANGEL LOCATION: [facility] [place] [place] : 33 UNIT #: [id number] AGE: [address]: Barrington Ngo MD SEX: F ORDER DR: MEDICAL IMAGING REPORT Page 1 of 1
--- NOTE | ~2017-03-07 | CR206 ---
[facility] A Service of [facility] & [facility] RADIOLOGY TEXT RESULTS PATIENT: JAREN ANGEL LOCATION: SED : 33 UNIT #: [id number] AGE: [address]: Barrington Ngo MD SEX: F ORDER DR: [id number] [place] [id number] E MR#: [id number] Acc #: [id number] NAME: JAREN ANGEL : 1935 SEX: F STUDY DATE/TIME: 03/07/2017 12:33 UNIT: SED ROOM: STUDY DESCRIPTION: CR Pelvis 1 or 2 Views Attending Physician: Barrington Ngo M.D. Referring Physician: Barrington Ngo M.D. Ordering Physician: Barrington Ngo M.D. Primary Care Physician: Kumar Pugh Jr., M.D. MEDICAL IMAGING REPORT This report is preliminary unless electronic signature is present. EXAM AP pelvis. HISTORY Fell at dialysis today. Slipped off chair with hip pain. FINDINGS An AP view of the pelvis obtained. The bony elements are in normal alignment, intact with no fractures seen. Postop changes are present in the lumbar spine. CONCLUSION 1. Negative bony pelvis and hips. No acute fractures seen. 2. Postop changes in the lumbar spine from L3-L5. Dictated by... Kumar Jarrell M.D. THIS IS AN ELECTRONICALLY VERIFIED REPORT Kumar Jarrell M.D. at 03/10/2017 7:21 AM JAVON/gab TD: 03/07/2017 16:28 JOB #: [id number] MEDICAL IMAGING REPORT Page 1 of 1
[~2017-03-07 12:57] MED LIST changes: +CARAFATE1 G PO; +COLACE PO; +DILTIAZEM 24HR240 MG PO; +EXELON1 PATCH .2; +EXELON4.6 MG EXT; +GLYCOLAX119 GM PO; +NEURONTIN300 MG PO; +OXYCODONE-APAP1 EAC5 PO; +POTASSIUM CHLO10 MEQ PO; +PREVAGAN PO; +ROBAXIN PO
== END 2017-03-07 14:52 | disposition home or self-care (01) ==
LOC: SED 12:57
DX: S39.012A Strain of muscle, fascia and tendon of lower back, initial encounter (principal); S30.0XXA Contusion of lower back and pelvis, initial encounter; I12.0 Hypertensive chronic kidney disease with stage 5 chronic kidney disease or end stage renal disease; N18.6 End stage renal disease
CPT/HCPCS: 72100; 72170; 99284

== ENCOUNTER 2017-03-24 10:48 | Inpatient (IN) | payer MEDICARE, OTHER ==
--- NOTE | ~2017-03-24 | TOC ---
Unit #: [id number] #: [id number] Patient: JAREN ANGEL [id number] [address] [place], [place] [address] [id number] I MR#: [id number] NAME: JAREN ANGEL. ROOM: 302 Age: 81 Sex: F Admission Date: 03/26/2017 : 1935 Attending Physician: Grant Ceballos M.D. Primary Care Physician: Kumar Pugh Jr., M.D. TRANSFER OF CARE SUMMARY CONSULTANTS 1. Dr. Dana Ramirez/Dr. Nimesh Gale. 2. Dr. Meredith Toussaint. 3. Dr. Caitlin Childress. ADMITTING DIAGNOSES 1. Dizziness. 2. Urinary tract infection. 3. Altered mental status. HISTORY OF PRESENT ILLNESS Patent is a pleasant 81-year-old lady who was recently started on dialysis, was transferred from rehab as she was complaining of dizziness. Currently she was supposed to undergo dialysis and she missed last two episodes of dialysis prior to the hospitalization. In the initial hospitalization she was noted to be in afib with RVR. She was started on Cardene and her heart rate has been controlled. Cardiology evaluated the patient. Dr. Toussaint started her on sotalol and monitoring the QT intervals. She was also started on anticoagulation with Lovenox and Coumadin. The INR is still 1.4 today; supposed to continue with bridging anticoagulation until the INR is more than two. For the acute kidney injury she was seen by Nephrology. She was on dialysis and Nephrology today recommended she does not require any further hemodialysis and they have consulted Vascular Surgery to remove the Shiley catheter. For urinary retention she did have a Ramírez catheter in place. There was initial concern for urinary tract infection. Her leukocyte esterase was small. Her urine was somehow not sent for culture. She is empirically on antimicrobials for that. For altered mental status Neurology was consulted, thought to be toxic-metabolic encephalopathy. The MRA of the brain could not be performed as she does have a pacemaker. A CT of the head did not show any acute changes. DISPOSITOION Physical therapy is recommending placement but the was not happy with the placements in the past. He thinks that she was more weak after she was discharged from the rehab than prior to the admission to the rehab. He recommends he wants to take the patient home after discharge. Unit #: [id number] #: [id number] Patient: JAREN ANGEL Kindly note a final discharge summary will be dictated by me or my colleagues at the time of actual discharge. Dictated by... Thanh Stephenson/leanna TD: 03/29/2017 13:14 JOB #: [id number] TRANSFER OF CARE SUMMARY Page 1 of 1 X X TRANSFER OF CARE SUMMARY
--- NOTE | ~2017-03-24 | A ---
[facility] Nutrition Therapy DATE: 03/25/17 Patient: JAREN ANGEL Physician: SALLY Address: [address] Room/Bed: [address] [place] [address], Zip: [place] [address] Admit Date: 03/24/17 Date of : 33 Height: 5 5 Weight: 114 52 NUTRITIONAL ASSESSMENT: REASON: Consult RE: renal diet education 81 yo female admitted for ESRD Anthropometrics: Ht: 5'5" Wt: 51.8 kg (114#) BMI: 19.0 Assessment: RD human resource intern provided written and verbal renal diet education. Per Communication Science weights, pt has wt loss of ~25# over the past 2 months, however pt reported no recent wt loss. Pt reported poor appetite and PO intake before admission. RD human resource intern discussed importance of adequate protein and calorie intake, especially when receiving HD. Pt reported drinking Ensure at home, RD human resource intern encouraged continuation of supplements if PO intake does not increase. RD human resource intern encouraged limiting sodium in diet, pt reported not using much salt at home. RD human resource intern provided written high calorie, high protein handouts and recipes. RD human resource intern encouraged consuming 6 small meals/d if appetite does not improve. Pt verbalized understanding of topic, expect moderate compliance with diet. Pt had no diet questions at this time. Recommendations: 1. Encourage compliance with renal diet. 2. Appreciate family and staff to encourage adequate protein and calorie intake. 3. Reconsult RD if further diet education is needed/requested. RD will f/u per protocol. Respectfully, Sherry Almazan, [employer] Robby Horn MS, RD, LD Food and Nutritional Services [facility] cc: client file
--- NOTE | ~2017-03-24 | CO ---
Unit #: [id number] #: [id number] Patient: JAREN ANGEL [id number] [address] [place], [place] [address] [id number] I MR#: [id number] NAME: JAREN ANGEL. ROOM: 302 Age: 81 Sex: F Admission Date: 03/24/2017 : 1935 Attending Physician: Ricky Bonilla M.D. Primary Care Physician: Kumar Pugh Jr., M.D. Requesting Physician: Dr. Evans Consultation Date: 03/25/2017 CONSULTATION REPORT REASON FOR CONSULTATION Acute kidney injury/ESRD. Thank you very much for this consultation. HISTORY OF PRESENT ILLNESS The patient is a demented 81-year-old white female, known to us from prior hospitalization who presented in January with sepsis from UTI and acute kidney injury from severe ATN who required dialysis initiation at that time. She has yet to recover since initiating dialysis in late January and has been getting Friday, Friday, and Friday hemodialysis as an outpatient. However, she missed her last two treatments because her said she was too weak to get out of bed. She has been having decreased p.o. intake, more weakness, and also some dysuria and worsening confusion on her baseline dementia. She was brought to the emergency room where she was noted to be hypokalemic and was admitted with these complaints. Due to her dementia, she was unable to provide any reliable review of systems, and no family is at bedside. She has been hypotensive this morning. She did have dialysis overnight with correction of her hypokalemia. PAST MEDICAL HISTORY 1. Significant for acute kidney injury with possible end stage renal disease at this point. 2. Paroxysmal atrial fibrillation. 3. Peptic ulcer disease. 4. Diverticulosis. 5. Dementia. 6. Hypertension. 7. Hyperlipidemia. 8. Chronic back pain and depression. PAST SURGICAL HISTORY 1. Back surgery. 2. Epidurals. 3. Hemorrhoidectomy. 4. Rotator cuff surgery. 5. Laser surgery to her eyes. SOCIAL HISTORY Lives with her . No alcohol, illicits or tobacco. FAMILY HISTORY Noncontributory. Unit #: [id number] #: [id number] Patient: JAREN ANGEL HOME MEDICATIONS Per the med rec and reviewed. REVIEW OF SYSTEMS Unobtainable due to her dementia. PHYSICAL EXAMINATION VITAL SIGNS: Blood pressure is 80s to 120s/40s to 70s, heart rate 50s to 70s, respiration 16 to 18, T. max 97.5. GENERAL: She is awake but confused. HEENT: Head is normocephalic and atraumatic. ENT - Pupils equal, round, reactive to light. Oropharynx is clear. NECK: Supple. No JVD. LUNGS: Clear to auscultation bilaterally with no wheezes, rhonchi or crackles. HEART: Regular rate and rhythm. No murmurs, gallops or rubs. ABDOMEN: Soft, nontender, nondistended. Positive bowel sounds. EXTREMITIES: She has no edema. DIAGNOSTIC STUDIES LABORATORY STUDIES: Sodium 135, potassium 3.8, chloride 99, bicarb 22, BUN 21, creatinine 1.2, glucose 80, calcium 7.2. White count 9.2, hemoglobin 9.7, platelets 139. Urine culture pending. IMAGING STUDIES: Chest x-ray was negative. ASSESSMENT AND PLAN 1. Acute kidney injury. Patient has been dialysis dependent since January and may be ESRD at this point. On admission her BUN was 67, creatinine 2.6, even after missing her last two dialysis treatments. Will check a 24 hour urine to assess her residual function and continue Friday, Friday, and Friday hemodialysis for now. 2. Hypotension. Would hold BP meds and give IV fluids. Discuss with cardiology. 3. Hypokalemia corrected with dialysis. 4. Possible urinary tract infection though no real significant pyuria culture is pending. 5. Anemia, check iron stores. 6. AFib, patient on anticoagulation per cardiology with rate per cardiology as well. 7. Dementia. Thank you very much for this consultation. Dictated by... Nimesh Gale M.D. SERAFIN/tiara TD: 03/25/2017 10:03 JOB #: [id number] Unit #: [id number] #: [id number] Patient: JAREN ANGEL CONSULTATION REPORT Page 1 of 1 X Nimesh Gale MD X CONSULTATION REPORT
--- NOTE | ~2017-03-24 | EKG ---
PATIENT: JAREN ANGEL UNIT #: [id number] Ventricular Rate: 67 BPM Atrial Rate: 64 BPM QRS Duration: 82 ms Q-T Interval: 476 ms QTC Calculation(Bezet): 502 ms Calculated R [place]: 2 degrees Calculated T [place]: -149 degrees Diagnosis Line: Atrial-paced rhythm with occasional and Diagnosis Line: consecutive supraventricular complexes Diagnosis Line: ST and T wave abnormality, consider inferior Diagnosis Line: ischemia Diagnosis Line: ST and T wave abnormality, consider anterolateral Diagnosis Line: ischemia Diagnosis Line: Prolonged QT Diagnosis Line: Abnormal ECG Diagnosis Line: When compared with ECG of 15-FEB-2017 16:23, Diagnosis Line: T wave inversion now evident in Inferior leads Diagnosis Line: T wave inversion now evident in Lateral leads Diagnosis Line: Confirmed by LEE ANN PETERSON MD ([id number]) on Diagnosis Line: 03/25/2017 4:33:50 PM INTERPRETING MD: KRISTEN JEFFERS
--- NOTE | ~2017-03-24 | CR72 ---
[facility] A Service of [facility] & [facility] RADIOLOGY TEXT RESULTS PATIENT: JAREN ANGEL LOCATION: [facility] : 31 UNIT #: [id number] AGE: [address]: Pankaj Montelongo MD SEX: F ORDER DR: [id number] [facility] [address] [place], [place] [address] [id number] MR#: [id number] Acc #: [id number] NAME: JARNE ANGEL. : 1935 SEX: F STUDY DATE/TIME: 03/24/2017 11:51 UNIT: [facility] ROOM: STUDY DESCRIPTION: CR Chest Single View Portable Attending Physician: Pankaj Montelongo M.D. Ordering Physician: Pankaj Montelongo M.D. Primary Care Physician: Kumar Pugh Jr., M.D. MEDICAL IMAGING REPORT This report is preliminary unless electronic signature is present EXAM Portable chest, 03/24. HISTORY Cough, shortness of air beginning today. COMPARISON STUDIES 02/28/2017 FINDINGS A portable view of the chest was obtained. The heart size and vascularity are normal and the lungs are clear. A dual-lead pacemaker is in good position. There is a right-sided central venous catheter with its tips in the right atrium. IMPRESSION No active disease. Dictated by... Barrington Hodge M.D. THIS IS AN ELECTRONICALLY VERIFIED REPORT Barrington Hodge M.D. at 03/24/2017 1:37 PM PILY/padmini TD: 03/24/2017 12:42 JOB #: [id number] MEDICAL IMAGING REPORT Page 1 of 1 COPY
--- NOTE | ~2017-03-24 | CO ---
Unit #: [id number] #: [id number] Patient: JAREN ANGEL [id number] [address] [place], [place] [address] [id number] I MR#: [id number] NAME: JAREN ANGEL ROOM: 302 Age: 81 Sex: F Admission Date: 03/26/2017 : 1935 Attending Physician: Grant Ceballos M.D. Primary Care Physician: Kumar Pugh Jr., M.D. Consultation Date: 03/28/2017 CONSULTATION REPORT ADDENDUM PAST MEDICAL HISTORY 1. History of end-stage renal disease, on dialysis. The patient was started on dialysis in January; however, her kidney function has significantly improved here and dialysis is recommending consideration of pulling her Shiley. 2. Peptic ulcer disease. 3. Diverticulosis. 4. Atrial fibrillation. 5. H. pylori. 6. Dementia, per the diagnosed 5 years ago. 7. Hypertension. 8. Depression. 9. Hyperlipidemia. 10. Chronic back pain. 11. Back surgery. 12. Arthroplasty. 13. History of epidurals. 14. Laser surgery. 15. Hemorrhoidectomy. 16. Rotator cuff surgery. FAMILY HISTORY Noncontributory to the presenting condition given her stated age of 81. SOCIAL HISTORY The patient is and lives with her . They have been for 65 years. She has never smoked. She has never drank alcohol or used illicit drugs. REVIEW OF SYSTEMS 14-point review of systems attempted with the patient's . The patient is a poor historian. Pertinent positives are as discussed above. ALLERGIES No known drug allergies. HOME MEDICATIONS As per med rec include diltiazem, Colace, GlycoLax, Exelon patch, Betapace, warfarin, Protonix, hydralazine, digestive probiotic, Procrit, Lipitor, Seroquel, Ativan, Tylenol. PHYSICAL EXAMINATION Unit #: [id number] #: [id number] Patient: JAREN ANGEL NEUROLOGIC: As discussed above, the patient is oriented to self only; however, she is nonfocal. She has no right or left confusion. No finger agnosia. She can name and identify. She can follow commands. She is tearful on exam. She believes that she is in [place]. She tells her that she thinks she is in the den. Her speech is clear, otherwise no aphasia, dysarthria or apraxia. Cranial nerve exam, she demonstrates full murdock of vision. She responds to threats in the primary and peripheral visual murdock. Eyes are conjugate without ptosis or nystagmus. Extraocular movements are intact. Sensation of face and scalp is intact. Strength of muscles of facial expression is intact. Hearing is intact to voice. Tongue is midline. Uvula is midline. Palate elevation is normal. Head turning and shoulder shrug is unremarkable. Neck is supple. Motor exam, she demonstrates normal bulk and tone. Strength is equal 5/5 in the extremities. Sensory exam is intact. No extinction appreciated. Gait and Romberg deferred. Reflexes, 1/4. Toes are mute. Coordination, no past-pointing. She has normal [id number]. DIAGNOSTIC STUDIES IMAGING STUDIES: She had a CT scan done for similar presentation and symptoms on her last admission on 02/15/2017. CT scan of the head without contrast that was negative for any acute intracranial findings. It did show mild generalized atrophy of suspect and chronic microvascular change. She is unable to undergo an MRI of the brain due to pacemaker placement. LABORATORY RESULTS: Sodium 141, potassium 3.3, chloride 107, CO2 of 28, glucose 76, BUN 14, creatinine 1.1, estimated GFR 46.4, calcium 7.9, phosphorus 2.7, magnesium 1.9. PT 14.6, INR 1.4. White blood cell count 3.1, hemoglobin 9.2, hematocrit 28.5, and platelet count 130. Other labs and studies are as per chart and have been reviewed in detail. Blood cultures preliminary, no growth after 24 hours x2 sets. IMPRESSION 1. Likely toxic metabolic encephalopathy/delirium on top of dementia. 2. History of end-stage renal disease, on hemodialysis, though recommendations are now that this may be an acute kidney injury and the hemodialysis is no longer needed. 3. Hypertension, resolved. 4. Dementia for 5 years per the patient's . 5. Atrial fibrillation with rapid ventricular response on arrival. 6. Anticoagulation with subtherapeutic INR. Defer to primary and Cardiology. PLAN Nothing at this time to suggest an acute primary neurologic etiology. The patient is nonfocal. Her states that she has been progressively worse since being hospitalized several weeks ago. CT of the head at that time was negative for any acute findings and she has had no changes neurologically other than fluctuating mental status on top of her known dementia. She cannot do an MRI secondary to pacemaker; however, there is nothing focal to suggest an acute or subacute new primary neurologic etiology such as stroke, seizure, or RESIDENTIAL DESIGNER infection. Please call as needed. Case was discussed with Dr. Childress. He agrees to the above and seen by him. Further recommendations to be made pending further clinical course. Please call us for any questions or call us if any changes. Unit #: [id number] #: [id number] Patient: JAREN ANGEL We thank you very much for allowing us to assist in the care of this patient. Dictated by... Tiana Ngo A.P.R.N. for Thanh Joyner/ludivina TD: 03/29/2017 05:32 JOB #: [id number] CONSULTATION REPORT Page 1 of 1 X Tiana Ngo PROTECTION ENGINEER X CONSULTATION REPORT
--- NOTE | ~2017-03-24 | HP ---
Unit #: [id number] #: [id number] Patient: JAREN ANGEL [id number] [address] [place], [place] [address] [id number] MR#: [id number] NAME: JAREN ANGEL. ROOM: Age: 81 Sex: F Admission Date: 03/24/2017 : 1935 Attending Physician: Pankaj Montelongo M.D. Primary Care Physician: Kumar Pugh Jr., M.D. HISTORY AND PHYSICAL CHIEF COMPLAINT Dizziness. HISTORY OF PRESENT ILLNESS The patient is an 81-year-old female with a history of dementia, paroxysmal afib, sick sinus syndrome with pacemaker, hypertension, dyslipidemia, chronic back pain, was recently discharged from the hospital on February 28 to the [facility] with hemodialysis. The patient was discharged from the rehab last and missed the dialysis on Friday and Friday. The patient is having decreased oral intake and generalized weakness. The patient also complains of positive for urinary frequency and positive for dysuria. The patient is being admitted for the above reasons with a potassium of 2.8 and generalized weakness, denies any fever, chills, nausea or vomiting. PAST MEDICAL HISTORY History of end-stage renal disease on dialysis, peptic ulcer disease, diverticulosis, atrial fibrillation, H. pylori and dementia, hypertension, depression, dyslipidemia, chronic back pain. PAST SURGICAL HISTORY Back surgery, arthroplasty, epidurals, laser surgery, hemorrhoidectomy, rotator cuff. SOCIAL HISTORY She lives at home with her . She does not smoke cigarettes or drink alcohol. FAMILY HISTORY No history of coronary artery disease or diabetes, reviewed and none. HOME MEDICATIONS She is on MiraLAX, rivastigmine, Protonix, Cardizem, levofloxacin, hydralazine, Florastor, sotalol, Procrit, Lipitor, Coumadin, Seroquel, lorazepam, Tylenol, ondansetron and guaifenesin and milk of magnesia. REVIEW OF SYMPTOMS Fourteen-point review of symptoms performed and only pertinent positive findings as described above, remaining are negative. PHYSICAL EXAMINATION Unit #: [id number] #: [id number] Patient: JAREN ANGEL GENERAL APPEARANCE: On examination the patient is lying on a bed not in acute distress. VITAL SIGNS: Temperature 97.1, pulse 68, respiratory rate 19, blood pressure 101/79, sating 100% at room air. HEENT: Head atraumatic, normocephalic. Pupils equal, round and reacting to light and accommodation. Extraocular movements are intact. Dry mucous membranes. NECK: Supple. LUNGS: Decreased air entry at the base. HEART: Regular rate and rhythm. ABDOMEN: Soft, positive bowel sounds. EXTREMITIES: No cyanosis. No clubbing. CHEST: The patient has a dialysis catheter of the right upper chest. DIAGNOSTIC STUDIES IMAGING: Chest x-ray shows no acute disease. LABORATORY DATA: Glucose 87, BUN 67, creatinine 2.6, sodium 135, potassium 2.8, chloride 98, bicarb 18, calcium 7.3, phosphorus 3.5, magnesium 1.6, total protein 6.9, albumin 3.3, total bilirubin 1.2, AST 28, ALT 17, alkaline phosphatase 99, amylase 42, lipase 60 and lactic acid is 1.6. WBC 8.4, hemoglobin 10.5, hematocrit 32.8, platelets 195, neutrophils 83. UA shows trace leukocyte esterase and 5 to 10 urine WBCs, 1+ urine bacteria. ASSESSMENT 1. End-stage renal disease, on hemodialysis. 2. Hypokalemia. 3. Urinary tract infection. 4. Dizziness. PLAN 1. Plan to admit the patient to observation with telemetry. 2. IV antibiotics, Rocephin 1 g daily for the UTI. 3. Replace potassium per Renal/per protocol. 4. Hemodialysis today and will have the renal consult for the dialysis. 5. Further recommendations will follow as more lab results are available. Dictated by Thanh Suárez TD: 03/24/2017 15:08 JOB #: [id number] Unit #: [id number] #: [id number] Patient: JAREN ANGEL HISTORY AND PHYSICAL Page 1 of 1 X X HISTORY AND PHYSICAL
--- NOTE | ~2017-03-24 | DS ---
Unit #: [id number] #: [id number] Patient: JAREN ANGEL [id number] [address] [place], [place] [address] [id number] I MR#: [id number] NAME: JAREN ANGEL ROOM: 302 Age: 81 Sex: F Admission Date: 03/26/2017 : 1935 Discharge Date: 04/01/2017 Attending Physician: Grant Ceballos M.D. Primary Care Physician: Kumar Pugh Jr., M.D. DISCHARGE SUMMARY ADDENDUM In the last few days, patient was seen for a couple of new things. She was seen by neurologist. The neurologist thought the confusion was toxic metabolic encephalopathy and recommended no further workup. Clinically, she is looking better. In the last few days, Vascular Surgery removed the Shiley catheter mainly because dialysis was thought to be not required in the intermediate project manager, and her dialysis access was removed. She is doing clinically better. I spoke with the patient and her . She is agreeable to go home. We offered her rehab and detention. The and patient refused to go to any rehab. They want to take her home, and she will be discharged home in stable condition today. We are also arranging for home healthcare to be provided. She is on antimicrobials for urinary tract infection and will request her to get a repeat CBC in the next few days. I did explain about the possible side effects of Zyvox to the patient. PHYSICAL EXAMINATION ON DAY OF DISCHARGE VITAL SIGNS: Temperature 97.5, pulse rate 60, respirations 19, and blood pressure 129/53. GENERAL: Patient is alert and oriented x3, lying in the bed in no acute distress. HEENT: Normocephalic and atraumatic. No icterus. Pupils are equal, round, and reactive to light and accommodation. Extraocular muscles intact. NECK: Supple. No JVD. HEART: S1 and S2, regular rate and rhythm. CHEST: Bilateral equal air entry, clear to auscultation. ABDOMEN: Soft and nontender. EXTREMITIES: No edema. Normal pulses. DISCHARGE MEDICATIONS 1. Coumadin 6 mg p.o. daily to target INR between 2 and 3. 2. Lipitor 80 mg at bedtime. 3. Tylenol p.r.n. 4. Seroquel 50 mg at bedtime. 5. Ativan 0.5 mg q.6 p.r.n. for agitation. 6. Betapace 40 mg p.o. twice daily. Kindly note, the dose was decreased from 80 mg twice daily to 40 mg twice daily. 7. Colace 100 mg p.o. twice daily. Unit #: [id number] #: [id number] Patient: JAREN ANGEL 8. MiraLax 17 grams p.o. daily. 9. Florastor 250 mg p.o. twice daily. 10. Exelon 4.6 mg daily. 11. Protonix 40 mg daily. 12. Oral Zyvox 600 mg p.o. b.i.d. for 5 more days. DISCHARGE INSTRUCTIONS Get repeat INR and CBC on Friday. All the discharge instructions were explained in detail to the patient. Total time spent in the discharge 35 minutes. Dictated by... Thanh Stephenson TD: 04/01/2017 14:19 JOB #: [id number] DISCHARGE SUMMARY Page 1 of 1 X X DISCHARGE SUMMARY
--- NOTE | ~2017-03-24 | EKG ---
PATIENT: JAREN ANGEL UNIT #: [id number] Ventricular Rate: 64 BPM Atrial Rate: 64 BPM P-R Interval: 160 ms QRS Duration: 132 ms Q-T Interval: 486 ms QTC Calculation(Bezet): 501 ms P [place]: 92 degrees Calculated R [place]: -56 degrees Calculated T [place]: 111 degrees Diagnosis Line: Demand pacemaker; interpretation is based on Diagnosis Line: intrinsic rhythm Diagnosis Line: Sinus rhythm with Premature ventricular complexes Diagnosis Line: or Fusion complexes Diagnosis Line: Left axis deviation Diagnosis Line: Left bundle branch block Diagnosis Line: Abnormal ECG Diagnosis Line: When compared with ECG of 25-MAR-2017 01:23, Diagnosis Line: Sinus rhythm has replaced Atrial fibrillation Diagnosis Line: Vent. rate has decreased BY 79 BPM Diagnosis Line: Confirmed by LUCINA JEFFERS, JOMAR ([id number]) on Diagnosis Line: 03/26/2017 3:40:57 PM INTERPRETING MD: HELLEN
--- NOTE | ~2017-03-24 | EKG ---
PATIENT: JAREN ANGEL UNIT #: [id number] Ventricular Rate: 143 BPM Atrial Rate: 150 BPM QRS Duration: 132 ms Q-T Interval: 360 ms QTC Calculation(Bezet): 555 ms Calculated R [place]: -55 degrees Calculated T [place]: 127 degrees Diagnosis Line: Atrial fibrillation with rapid ventricular Diagnosis Line: response with premature ventricular or aberrantly Diagnosis Line: conducted complexes Diagnosis Line: Left axis deviation Diagnosis Line: Left bundle branch block Diagnosis Line: Abnormal ECG Diagnosis Line: No previous ECGs available Diagnosis Line: Confirmed by LEE ANN PETERSON MD ([id number]) on Diagnosis Line: 03/25/2017 4:37:05 PM INTERPRETING MD: KRISTEN JEFFERS
--- NOTE | ~2017-03-24 | CO ---
Unit #: [id number] #: [id number] Patient: JAREN ANGEL [id number] [facility] [address] [place], [place] [address] [id number] I MR#: [id number] NAME: JAREN ANGEL ROOM: 302 Age: 81 Sex: F Admission Date: 03/26/2017 : 1935 Attending Physician: Grant Ceballos M.D. Primary Care Physician: Kumar Pugh Jr., M.D. Consultation Date: 03/28/2017 CONSULTATION REPORT PRIMARY CARE PHYSICIAN Kumar Pugh M.D. REASON FOR CONSULT TME. PATIENT IDENTIFICATION This is an 81-year-old, ambidextrous, female, evaluated in room 302 at [facility]. SOURCE OF INFORMATION Obtained from the patient's as well as medical record. HISTORY OF PRESENT ILLNESS This is an 81-year-old female with a past medical history of dementia for the last 4 to 5 years per the , paroxysmal atrial fibrillation, sick sinus syndrome with pacemaker, hypertension, hyperlipidemia, chronic back pain who presented to [facility] with weakness, admitted for hypokalemia, urinary tract infection and end-stage renal disease. She was just discharged from the hospital on 02/28/2017 to [facility] and her states that she just got home within the last week. She actually missed dialysis on Friday and Friday and has had decreased oral intake and generalized weakness. Neurology was asked to evaluate further for toxic metabolic encephalopathy and mental status changes. When I spoke with the patient's at the bedside, he states that she has had dementia for 5 years, but prior to being ill and hospitalized over the last month or two, was able to carry on normal routine although he was doing most things for her. He states that she had memory loss and confusion, but was not severely confused. He states ever since she has been in the hospital on this last admission, she has had waxing and waning of symptoms with confusion and becomes worse when she has dialysis. He states when she got home from rehab, she continued to be weak and she actually fell to the floor. Whenever he was trying to help her up, he states that her knees buckled. He states that she did not hit her head and neck, and that they both a kind of ease to the floor. He states that he brought her back to the hospital as he was concerned, he was not able to take care of her safely at home. She is admitted here for urinary tract infection, hypokalemia and end-stage renal disease, on hemodialysis. She is also being seen for acute kidney injury by Nephrology. Again, the patient has been dialysis dependent since January. She was also hypotensive. Her blood pressure medications were held. She was given IV fluids and hypokalemia. She has been treated with dialysis and is being corrected. However, her creatinine today is 1.1. Unit #: [id number] #: [id number] Patient: JAREN ANGEL Again, she has been on dialysis since January. From a neurologic standpoint, the patient is nonfocal. She is confused. She is oriented to person only. She thinks she is in [place]. She tells her that she has been in the den or in the kitchen. She is tearful. She does recognize her , however. She does follow simple commands. She has no right or left confusion. No finger agnosia. She is not aphasic, dysarthric or apraxic and she follows simple commands and she is grossly nonfocal. He has not reported any acute neurologic symptoms and I did a full review of systems with him, 14 point, and there was no neurologic complaints or any acute neurologic changes. This appears to have been a progressive change. PHYSICAL EXAMINATION VITAL SIGNS: Temperature 98.0, pulse 60, respirations 18, blood pressure 136/64, oxygen saturation 98%. Height 5 feet 5 inches, weight 110 pounds, BMI 18. NEUROLOGIC EXAM: Dictated by... Tiana Ngo A.P.R.N. for Thanh Joyner/ludivina TD: 03/29/2017 00:17 JOB #: [id number] CONSULTATION REPORT Page 1 of 1 X Tiana Ngo APRN X CONSULTATION REPORT
--- NOTE | ~2017-03-24 | OR ---
Unit #: [id number] #: [id number] Patient: JAREN ANGEL [id number] [address] [place], [place] [address] [id number] I MR#: [id number] NAME: JAREN ANGEL ROOM: 302 Date of Procedure: 03/29/2017 Admission Date: 03/26/2017 Surgeon: Naomi Cullen M.D. : 1935 Attending Physician: Grant Ceballos M.D. Primary Care Physician: Kumar Pugh Jr., M.D. OPERATIVE REPORT PREPROCEDURE DIAGNOSIS Improved renal function, not requiring dialysis. POSTPROCEDURE DIAGNOSIS Improved renal function, not requiring dialysis. PROCEDURE PERFORMED Removal of right internal jugular tunneled dialysis catheter at bedside. ANESTHESIA Local. COMPLICATIONS None. ESTIMATED BLOOD LOSS Zero. INDICATIONS FOR PROCEDURE The patient is an 81-year-old female with improved renal function, who no longer requires her tunneled dialysis catheter. She was recommended removal of the catheter. She and her at the bedside were told the planned procedure including the risks, benefits, and wished to proceed. DESCRIPTION OF PROCEDURE In the patient's hospital room, her right neck and chest were prepped and draped in normal standard manner. A time-out was performed with nursing staff in the room. 1% lidocaine was infused at the catheter exit site in the chest to the subcutaneous cuff. The cuff was then dissected free circumferentially with a mosquito clamp and then when fully freed, it was then removed along with the entire catheter. Direct pressure was held on the base of the neck as well as chest wall for 5 minutes with no bleeding noted. Dressing was applied, and the procedure was terminated. The patient tolerated the procedure well. Dictated by... Thanh Rodriguez/ludivina TD: 03/30/2017 16:02 Unit #: [id number] #: [id number] Patient: JAREN ANGEL JOB #: [id number] OPERATIVE REPORT Page 1 of 1 X Naomi Cullen MD X PROCEDURE OPERATIVE NOTE
--- NOTE | ~2017-03-24 | CO ---
Unit #: [id number] #: [id number] Patient: JAREN ANGEL [id number] [facility] [address] [place], [place] [address] [id number] MR#: [id number] NAME: JAREN ANGEL. ROOM: 302 Age: 81 Sex: F Admission Date: 03/24/2017 : 1935 Attending Physician: Ricky Bonilla M.D. Primary Care Physician: Kumar Pugh Jr., M.D. Consultation Date: 03/25/2017 CONSULTATION REPORT REASON FOR CONSULTATION Atrial fibrillation with rapid ventricular response and hypotension. HISTORY OF PRESENT ILLNESS This is an 81-year-old white female with known history of end-stage renal disease, on hemodialysis, history of paroxysmal atrial fibrillation, hypertension, hyperlipidemia, permanent pacemaker for sick sinus syndrome, dementia, and anemia, who was hospitalized here at [facility] and was discharged on February 28 to rehab. Patient at that time had just been started on hemodialysis. She also had an E. coli UTI, and we had seen her at that time for paroxysmal atrial fibrillation and was on rate control with Eliquis. Since that time, patient was started back on Coumadin instead of Eliquis. Patient was discharged from rehab last , and according to the who brought her into the emergency room, she missed dialysis on Friday and Friday because she was so weak she could not get out of bed. She has been having decreased oral intake and generalized weakness. The only other complaints the patient reported were urinary frequency and dysuria. Patient has not been eating well. Also, not sure if she has been taking her home medications. There is no indication of any pain, especially any chest pain or pain in her neck or bilateral jaw, shoulders, arms, or elbows. There does not appear to be any dizziness, presyncope, or syncopal episodes. In the emergency room, patient's blood pressure was 101/79, heart rate 68, respirations 18, temperature 97.1, and O2 saturation was 100% on room air. Initial labs: Her potassium was found to be 2.8 with a creatinine of 2.6 and a BUN of 67. Lactic acid was 1.6. WBC 8.4, hemoglobin 10.5, and platelets 195,000. Urinalysis did not indicate infection. Chest x-ray showed lungs were clear. Her EKG on arrival appears to be in AV paced rhythm with underlying sinus. Then through the night, patient went into atrial fibrillation with rapid ventricular response. Patient was started on a Cardizem drip. Her potassium and magnesium were supplemented. Cardiology has been consulted to assist with evaluation and management. It is also noted that her blood pressure did decrease down to 80 systolically, and they discontinued the Cardizem drip. Her initial cardiac enzymes were negative, and there are no acute ischemic changes on her initial EKG. PAST MEDICAL HISTORY 1. End-stage renal disease, on hemodialysis recently initiated in January. 2. Atrial fibrillation permanent or paroxysmal. 3. Hypertension. Unit #: [id number] #: [id number] Patient: JAREN ANGEL 4. Hyperlipidemia. 5. Lumbar disc disease with history of kyphoplasty. 6. A 2D echo in 2008 showed an LVEF of 55% with mild LVH and no significant heart disease. 7. Permanent pacemaker secondary to sick sinus syndrome. 8. History of GI bleed in 2013. She had an EGD which showed multiple small antral ulcers and colonoscopy showed diverticulosis and melanosis coli. 9. History of anemia. 10. Recent hospitalization and discharged on February 28, 2017, to rehab with a diagnosis of E. coli UTI, sepsis, needed hemodialysis, and paroxysmal atrial fibrillation. She was just released last . 11. Nonsmoker. 12. Depression. 13. Advanced dementia. PAST SURGICAL HISTORY 1. Permanent pacemaker. Patient follows with Dr. Tafoya. 2. Back surgery. 3. Kyphoplasty. 4. Epidurals. 5. Hemorrhoidectomy. 6. Rotator cuff surgery. 7. Laser surgery to her eyes. HOME MEDICATIONS 1. Diltiazem 24-hour, 240 mg 1 tablet daily. 2. Colace 100 mg p.o. twice daily. 3. GlycoLax 17 g p.o. daily. 4. Exelon 4.6 mg external patch daily. 5. Betapace 80 mg p.o. twice daily. 6. Coumadin 6 mg p.o. daily. 7. Pantoprazole 40 mg p.o. daily. 8. Hydralazine 25 mg p.o. 3 times daily. 9. Probiotic 250 mg 1 tablet p.o. daily. 10. Procrit 10,000 units subcutaneous weekly. 11. Lipitor 80 mg p.o. at bedtime. 12. Seroquel 50 mg p.o. at bedtime. 13. Ativan 0.5 mg every 6 hours p.r.n. for agitation. 14. Tylenol 650 mg every 4 hours p.r.n. for pain. ALLERGIES No known drug allergies. SOCIAL HISTORY Patient lives in her home with her spouse. She has been a lifelong nonsmoker and no alcohol or illicit drug abuse. Her mother at the age of 85 from congestive heart failure, and her father had coronary artery disease. REVIEW OF SYSTEMS See details in History of Present Illness. PHYSICAL EXAMINATION GENERAL: Mrs. Angel is an 81-year-old white female in no acute respiratory distress. She is awake and alert, but she has very poor memory recall due to her dementia. VITAL SIGNS: Blood pressure is 88/46, respirations 18, temperature 98, Unit #: [id number] #: [id number] Patient: JAREN ANGEL heart rate 64, and O2 saturations 99% on room air. NECK: Trachea midline. No thyromegaly or lymphadenopathy. Normal carotid upstrokes. No jugular venous distention. HEART: S1 and S2, regular rate and rhythm. No clicks, murmurs, or rubs. LUNGS: Diminished with poor inspiratory effort. ABDOMEN: Soft and nontender. EXTREMITIES: Pedal pulses are palpable. Trace pedal edema. DIAGNOSTIC STUDIES LABORATORY: Glucose is 80, BUN 21, creatinine 1.2, eGFR 41.8, sodium 135, potassium 3.8, chloride 99, CO2 is 22, calcium 7.2, phosphorus 3.5, magnesium 1.7, total protein 6.9, albumin 3.3, total bilirubin 1.2, AST 28, ALT 17, and alkaline phosphatase is 99. Lactic acid was 1.6 on admission and is 1.3 today. WBC 9.2, hemoglobin 9.7, hematocrit 29.8, and platelets 139,000. Initial cardiac enzymes: CK-MB is 7 and troponin less than 0.05; CK-MB is 5.3 and troponin less than 0.05. Latest troponin is 0.02. Pro time is 12.5 with an INR of 1.2. Urinalysis shows trace leukocyte esterase, trace protein, 1 urobilinogen, 5-10 WBCs, and 1+ bacteria. Urine and blood cultures are pending. IMAGING: Chest x-ray shows no active disease. Lungs are clear. CARDIOLOGY: EKG on admission looked like it was atrial paced rhythm with underlying sinus rhythm and ST and T wave abnormality in inferior and anterolateral leads. Later, EKG showed atrial fibrillation with rapid ventricular response, ventricular rate 143 beats per minute, left bundle branch block, and left axis deviation. IMPRESSION 1. Atrial fibrillation with rapid ventricular response. 2. Hypotension. 3. Some nonsustained ventricular tachycardia. 4. Anemia. 5. Subtherapeutic INR on Coumadin. 6. History of paroxysmal atrial fibrillation. 7. End-stage renal disease, on hemodialysis. 8. Hypertension. 9. Hyperlipidemia. 10. History of peptic ulcer disease. 11. Permanent pacemaker secondary to sick sinus syndrome. 12. History of anemia. 13. Vascular dementia. 14. Recently discharged from hospital with Escherichia coli urinary tract infection, new hemodialysis, and paroxysmal atrial fibrillation on February 28, 2017. 15. Left ventricular ejection fraction of 55% on latest two-dimensional echocardiogram with mild left ventricular hypertrophy and no significant heart disease. 16. Nonsmoker. PLAN 1. Patient's daughter just informed me that patient sees Dr. Tafoya, her bi tester. Will try to obtain records from his office including latest echo and any kind of stress test or cath report and evaluation of her permanent pacemaker. Patient's rhythm is now back in atrial paced rhythm with underlying sinus rhythm. Her blood pressure is somewhat low. She did have a dose of oral Cardizem through the night, along with Betapace. Will stop the Cardizem and Unit #: [id number] #: [id number] Patient: JAREN ANGEL hydralazine to avoid hypotension. 2. Patient did have hemodialysis late yesterday. (1) has been in and thinks she might be a little dry, so she is getting a 500 mL bolus of normal saline x2, and he is putting her on maintenance fluids. 3. There is concern that the patient is not taking her medications regularly, because she was just started on Cardizem, and after a short time she converted back to sinus rhythm. Will continue on sotalol. Will check an EKG tomorrow to check the QTc. It appears she has been on that for some time. It is noted we are continuing sotalol even though she has renal failure because it is probably what can control her rhythm. 4. Initiate Lovenox 1 mg/kg subcutaneous daily for bridging for her subtherapeutic INR. 5. Continue on Coumadin. She is taking 6 mg p.o. daily. Again, she may not have been taking her medication properly since getting home from rehab. 6. On exam, there are no signs or symptoms of unstable angina or acute congestive heart failure. 7. Nephrology is managing any diuretics. Plans are to have hemodialysis tomorrow. 8. Further recommendations pending by Dr. Toussaint. Thank you very much for allowing us to assist in her care. Dictated by... Freddie HurtadoPPingRDean for Thanh Hayes/mindy TD: 03/25/2017 15:44 JOB #: [id number] CONSULTATION REPORT Page 1 of 1 X Allie Cosby APRN X CONSULTATION REPORT
[2017-03-24 12:06] LABS: BASOPHIL% 0.3 % (0-2.5); DIFF IND YES; EOSINOPHIL% 0.1 % (0.0-7.0); HEMATOCRIT 32.8 % (35.0-45.0); HEMOGLOBIN 10.5 gm/dL (12.0-16.0); LYMPHOCYTE# 0.8 X10e3 (1.0-3.5); MEAN CORPUSCULAR HEMOGLOBIN 26.5 PG (28-34); MEAN PLATELET VOLUME 8.2 FL (6.5-11.5); MONOCYTE# 0.6 X10e3 (0-1.0); MONOCYTE% 7.6 % (3.0-12.0); PLATELET COUNT 195 X10e3 (140-420); RED BLOOD COUNT 3.95 X10e (3.90-5.30); RED CELL DISTRIBUTION WIDTH 24.4 % (11.0-15.5); WHITE BLOOD COUNT 8.4 X10e3 (4.0-10.5)
[2017-03-24 12:12] LABS: INR 1.2; PARTIAL THROMBOPLASTIN TIME 27.9 SECONDS (23.5-31.3); PROTHROMBIN TIME (PATIENT) 12.6 SECONDS (9.6-11.5)
[2017-03-24 12:21] LABS: PLATELET ESTIMATE NORMAL (NORMAL)
[2017-03-24 12:22] LABS: ELLIPTOCYTES PRESENT
[2017-03-24 12:23] LABS: SCHISTOCYTES PRESENT
[2017-03-24 12:39] LABS: ALBUMIN SERUM 3.3 g/dL (3.5-5.0); BILIRUBIN, DIRECT 0.1 mg/dL (0.0-0.2); BILIRUBIN,INDIRECT 1.1 mg/dL (0.0-0.9); BILIRUBIN,TOTAL 1.2 mg/dL (0.2-2.0); BUN/CREATININE RATIO 25.76; CALCIUM SERUM 7.3 mg/dL (8.4-10.2); CREATININE SERUM 2.6 mg/dL (0.6-1.4); GLOM FILT RATE Estimated 16.4 mL/min (>60); MAGNESIUM 1.6 mg/dL (1.6-3.0); PHOSPHOROUS 3.5 mg/dL (2.5-4.6); PROTEIN TOTAL SERUM 6.9 g/dL (6.0-8.3)
[2017-03-24 12:42] LABS: POTASSIUM 2.8 mmol/L (3.5-5.1)
[2017-03-24 13:09] LABS: URINE SOURCE CLEAN CATCH
[2017-03-24 13:10] LABS: CULTURE INDICATED? YES; URINE APPEARANCE CLEAR; URINE BACTERIA AUWI 1+ (NEGATIVE); URINE BILIRUBIN NEG (NEG); URINE BLOOD NEG (NEG); URINE COLOR DK YELLOW; URINE GLUCOSE NEG (NEG); URINE KETONE TRACE (NEG); URINE LEUKOCYTE ESTERASE TRACE (NEG); URINE NITRATE NEG (NEG); URINE PROTEIN TRACE (NEG); URINE SPECIFIC GRAVITY 1.023 (1.003-1.035); URINE SQUAMOUS EPITHELIAL CELL NONE SEEN /[HPF]
[2017-03-24 13:24] LABS: POC - TROPONIN <0.05 ng/mL (<=0.05)
[2017-03-24 14:20] LABS: POC - CKMB 5.3 ng/mL (0.0-7.9); POC - TROPONIN <0.05 ng/mL (<=0.05)
[2017-03-24] MEDS ORDERED: HYDRALAZINE HCL25 MG PO (20:44)
[2017-03-24] MEDS ORDERED: PANTOPRAZOLE SO40 MG PO (20:44)
[2017-03-24] MEDS ORDERED: DIGESTIVE PROB250 MG PO (20:46)
[2017-03-24] MEDS ORDERED: LIPITOR80 MG PO (20:47)
[2017-03-24] MEDS ORDERED: PROCRIT10000 UNIT SUBQ (20:47)
[2017-03-24] MEDS ORDERED: SEROQUEL50 M1 PO (20:49)
[2017-03-24] MEDS ORDERED: ATIVAN0.5 M1 PO (20:49)
[2017-03-24] MEDS ORDERED: TYL325 PO (20:50)
[2017-03-25 03:46] LABS: BASOPHIL% 0.2 % (0-2.5); EOSINOPHIL% 0.2 % (0.0-7.0); HEMATOCRIT 29.8 % (35.0-45.0); HEMOGLOBIN 9.7 gm/dL (12.0-16.0); LYMPHOCYTE# 0.8 X10e3 (1.0-3.5); LYMPHOCYTE% 8.6 % (17.0-45.0); MEAN CELL VOLUME 82.4 FL (83-96); MEAN CORPUSCULAR HEMOGLOBIN 26.8 PG (28-34); MEAN CORPUSCULAR HGB CONC 32.5 g/dL (30-36); MEAN PLATELET VOLUME 7.8 FL (6.5-11.5); MONOCYTE# 0.7 X10e3 (0-1.0); MONOCYTE% 8.1 % (3.0-12.0); NEUTROPHIL# 7.6 X10e3 (1.5-7.1); NEUTROPHIL% 82.9 % (40-75); PLATELET COUNT 139 X10e3 (140-420); RED BLOOD COUNT 3.61 X10e (3.90-5.30); RED CELL DISTRIBUTION WIDTH 25.4 % (11.0-15.5); WHITE BLOOD COUNT 9.2 X10e3 (4.0-10.5)
[2017-03-25 03:47] LABS: DIFF IND NO
[2017-03-25 03:55] LABS: INR 1.2; PROTHROMBIN TIME (PATIENT) 12.5 SECONDS (9.6-11.5)
[2017-03-25 03:59] LABS: BUN/CREATININE RATIO 17.5; CALCIUM SERUM 7.2 mg/dL (8.4-10.2); CREATININE SERUM 1.2 mg/dL (0.6-1.4); GLOM FILT RATE Estimated 41.8 mL/min (>60); MAGNESIUM 1.7 mg/dL (1.6-3.0); POTASSIUM 3.1 mmol/L (3.5-5.1)
[2017-03-26 06:14] LABS: HEMATOCRIT 27.6 % (35.0-45.0); HEMOGLOBIN 8.9 gm/dL (12.0-16.0); MEAN CELL VOLUME 85.1 FL (83-96); MEAN CORPUSCULAR HEMOGLOBIN 27.4 PG (28-34); MEAN CORPUSCULAR HGB CONC 32.2 g/dL (30-36); MEAN PLATELET VOLUME 8.2 FL (6.5-11.5); RED BLOOD COUNT 3.25 X10e (3.90-5.30); RED CELL DISTRIBUTION WIDTH 25.8 % (11.0-15.5); WHITE BLOOD COUNT 7.1 X10e3 (4.0-10.5)
[2017-03-26 06:23] LABS: INR 1.1; PROTHROMBIN TIME (PATIENT) 11.9 SECONDS (9.6-11.5)
[2017-03-26 06:58] LABS: BUN/CREATININE RATIO 18.75; CALCIUM SERUM 7.6 mg/dL (8.4-10.2); CREATININE SERUM 1.6 mg/dL (0.6-1.4); GLOM FILT RATE Estimated 29.5 mL/min (>60); MAGNESIUM 1.6 mg/dL (1.6-3.0); PHOSPHOROUS 2.2 mg/dL (2.5-4.6); POTASSIUM 4.1 mmol/L (3.5-5.1)
[2017-03-26 16:55] LABS: BODY SURFACE AREA 1.56; URINE CREATININE 157.8 mg/dL
[2017-03-27 06:20] LABS: HEMATOCRIT 29.4 % (35.0-45.0); HEMOGLOBIN 9.5 gm/dL (12.0-16.0); MEAN CELL VOLUME 84.5 FL (83-96); MEAN CORPUSCULAR HEMOGLOBIN 27.4 PG (28-34); MEAN CORPUSCULAR HGB CONC 32.4 g/dL (30-36); MEAN PLATELET VOLUME 8.1 FL (6.5-11.5); RED BLOOD COUNT 3.48 X10e (3.90-5.30); RED CELL DISTRIBUTION WIDTH 26.1 % (11.0-15.5); WHITE BLOOD COUNT 6.5 X10e3 (4.0-10.5)
[2017-03-27 06:30] LABS: INR 1.4; PROTHROMBIN TIME (PATIENT) 15.1 SECONDS (9.6-11.5)
[2017-03-27 07:02] LABS: BUN/CREATININE RATIO 10.9; CALCIUM SERUM 8.2 mg/dL (8.4-10.2); CREATININE SERUM 1.1 mg/dL (0.6-1.4); GLOM FILT RATE Estimated 46.4 mL/min (>60); POTASSIUM 3.7 mmol/L (3.5-5.1)
[2017-03-28 04:43] LABS: HEMATOCRIT 28.5 % (35.0-45.0); HEMOGLOBIN 9.2 gm/dL (12.0-16.0); MEAN CELL VOLUME 85.2 FL (83-96); MEAN CORPUSCULAR HEMOGLOBIN 27.6 PG (28-34); MEAN CORPUSCULAR HGB CONC 32.4 g/dL (30-36); MEAN PLATELET VOLUME 8.6 FL (6.5-11.5); RED BLOOD COUNT 3.35 X10e (3.90-5.30); RED CELL DISTRIBUTION WIDTH 25.8 % (11.0-15.5)
[2017-03-28 04:44] LABS: WHITE BLOOD COUNT 3.1 X10e3 (4.0-10.5)
[2017-03-28 04:54] LABS: INR 1.4; PROTHROMBIN TIME (PATIENT) 14.6 SECONDS (9.6-11.5)
[2017-03-28 05:04] LABS: BUN/CREATININE RATIO 12.72; CALCIUM SERUM 7.9 mg/dL (8.4-10.2); CREATININE SERUM 1.1 mg/dL (0.6-1.4); GLOM FILT RATE Estimated 46.4 mL/min (>60); MAGNESIUM 1.9 mg/dL (1.6-3.0); PHOSPHOROUS 2.7 mg/dL (2.5-4.6); POTASSIUM 3.3 mmol/L (3.5-5.1)
[2017-03-29 06:22] LABS: INR 1.5; PROTHROMBIN TIME (PATIENT) 16.5 SECONDS (9.6-11.5)
[2017-03-29 07:25] LABS: BUN/CREATININE RATIO 17.27; CALCIUM SERUM 8.5 mg/dL (8.4-10.2); CREATININE SERUM 1.1 mg/dL (0.6-1.4); GLOM FILT RATE Estimated 46.4 mL/min (>60); POTASSIUM 3.5 mmol/L (3.5-5.1)
[2017-03-30 05:26] LABS: INR 1.9; PROTHROMBIN TIME (PATIENT) 20.8 SECONDS (9.6-11.5)
[2017-03-30 07:50] LABS: BUN/CREATININE RATIO 27.14; CALCIUM SERUM 8.7 mg/dL (8.4-10.2); CREATININE SERUM 0.7 mg/dL (0.6-1.4); GLOM FILT RATE Estimated 80.1 mL/min (>60); MAGNESIUM 1.8 mg/dL (1.6-3.0); POTASSIUM 3.1 mmol/L (3.5-5.1)
[2017-03-31 06:54] LABS: BASOPHIL% 1.3 % (0-2.5); EOSINOPHIL# 0.1 X10e3 (0-0.7); EOSINOPHIL% 2.5 % (0.0-7.0); HEMATOCRIT 29.6 % (35.0-45.0); HEMOGLOBIN 9.3 gm/dL (12.0-16.0); LYMPHOCYTE# 1.2 X10e3 (1.0-3.5); LYMPHOCYTE% 32.9 % (17.0-45.0); MEAN CELL VOLUME 85.5 FL (83-96); MEAN CORPUSCULAR HGB CONC 31.6 g/dL (30-36); MEAN PLATELET VOLUME 8.8 FL (6.5-11.5); MONOCYTE# 0.4 X10e3 (0-1.0); MONOCYTE% 11.7 % (3.0-12.0); NEUTROPHIL% 51.6 % (40-75); PLATELET COUNT 177 X10e3 (140-420); RED BLOOD COUNT 3.46 X10e (3.90-5.30); RED CELL DISTRIBUTION WIDTH 24.9 % (11.0-15.5); WHITE BLOOD COUNT 3.8 X10e3 (4.0-10.5)
[2017-03-31 06:56] LABS: DIFF IND NO
[2017-03-31 07:38] LABS: CALCIUM SERUM 8.6 mg/dL (8.4-10.2); GLOM FILT RATE Estimated 52.1 mL/min (>60); POTASSIUM 3.4 mmol/L (3.5-5.1)
[2017-04-01 05:31] LABS: INR 2.9
[2017-04-01 05:32] LABS: HEMATOCRIT 27.2 % (35.0-45.0); HEMOGLOBIN 8.7 gm/dL (12.0-16.0); MEAN CELL VOLUME 88.1 FL (83-96); MEAN CORPUSCULAR HEMOGLOBIN 28.2 PG (28-34); MEAN PLATELET VOLUME 8.7 FL (6.5-11.5); RED BLOOD COUNT 3.09 X10e (3.90-5.30); RED CELL DISTRIBUTION WIDTH 24.4 % (11.0-15.5); WHITE BLOOD COUNT 3.2 X10e3 (4.0-10.5)
[2017-04-01 05:34] LABS: PROTHROMBIN TIME (PATIENT) 31.9 SECONDS (9.6-11.5)
[2017-04-01 05:54] LABS: CALCIUM SERUM 8.5 mg/dL (8.4-10.2); GLOM FILT RATE Estimated 52.1 mL/min (>60); MAGNESIUM 1.8 mg/dL (1.6-3.0); POTASSIUM 3.9 mmol/L (3.5-5.1)
[2017-04-01] MEDS ORDERED: ZYVOX PO (14:35)
== END 2017-04-01 15:31 | disposition home or self-care (01) | DRG 682 ==
LOC: CED 10:48 → CEDOF 14:50 → C3A PCU 14:50 → CED 16:00 → CEDOF 16:00 → C3A PCU 17:45 → CEDOF 17:45 → C3A PCU 03-25 07:47 → CEDOF 03-26 13:15 → C3A PCU 04-01 15:31
PROVIDERS: Emergency Medicine; Internal Medicine; Internal Medicine Cardiovascular Disease; Internal Medicine Nephrology
PROC: 05PYX3Z Removal of Infusion Device from Upper Vein, External Approach (ICD-10-PCS; principal; 2017-03-29)
DX: I12.0 Hypertensive chronic kidney disease with stage 5 chronic kidney disease or end stage renal disease (principal); N18.6 End stage renal disease; G92 Toxic encephalopathy; N17.9 Acute kidney failure, unspecified; I47.2 Ventricular tachycardia; F03.90 Unspecified dementia, unspecified severity, without behavioral disturbance, psychotic disturbance, mood disturbance, and anxiety; I49.5 Sick sinus syndrome; F05 Delirium due to known physiological condition; N39.0 Urinary tract infection, site not specified; I48.0 Paroxysmal atrial fibrillation; Z99.2 Dependence on renal dialysis; E87.6 Hypokalemia; R42 Dizziness and giddiness; Z79.01 Long term (current) use of anticoagulants; E78.5 Hyperlipidemia, unspecified; G89.29 Other chronic pain; M54.9 Dorsalgia, unspecified; F32.9 Major depressive disorder, single episode, unspecified; I95.9 Hypotension, unspecified; D64.9 Anemia, unspecified; E86.0 Dehydration; R55 Syncope and collapse; E83.42 Hypomagnesemia
CPT/HCPCS: 36415; 51701; 71010; 80048; 80076; 81003; 82150; 82553; 82575; 82728; 82947; 83540; 83550; 83605; 83690; 83735; 84100; 84132; 84484; 85025; 85027; 85610; 85730; 87040; 87086; 87088; 87186; 87340; 93005; 97163; 99285; G8978-GP; G8979-GP; G8980-GP; J0696; J0885; J1630; J1650; J1756; J2020; J2060; J3475; J3480; Q4081